=== PATIENT | female | born 1990 | race Caucasian/White ===

== ENCOUNTER 2020-04-17 03:31 | Outpatient (CLI) | payer OTHER, SELFPAY ==
[2020-04-17 16:22] LABS: Abs Immature Grans 0.03 10^3/uL (0.0-0.06); Absolute Basophil Count 0.02 10^3/uL (0.0-0.2); Absolute Eosinophil Count 0.08 10^3/uL (0.0-0.7); Absolute Lymphocyte Count 2.48 10^3/uL (1.2-3.4); Absolute Monocyte Count 0.62 10^3/uL (0.1-0.8); Absolute Neutrophil Count 5.14 10^3/uL (1.2-6.7); Basophils % 0.2; HCT 31.9 % (36.0-46.0); HGB 11.3 g/dL (11.2-15.7); Immature Grans % 0.4; Lymphocytes % 29.6; MCH 30.9 pg (27.0-33.0); MCHC 35.4 % (32.0-36.0); MCV 87.2 fL (80-95); MPV 11.7 fL (8.0-11.0); Monocytes % 7.4; Neutrophils % 61.4; Nucleated RBC 0 %; Platelet Count 221 10^3/uL (130-400); RBC 3.66 10^6/uL (3.93-5.22); RDW 11.9 % (11.7-14.6); RDW-SD 38.2 fL; WBC 8.37 10^3/uL (4.4-10.8)
[2020-04-17 16:30] LABS: *AMPHETAMINES SCREEN URINE Negative (Negative); *BARBITURATES SCREEN URINE Negative (Negative); *BENZODIAZEPINES SCREEN URINE Negative (Negative); Cannabinoids THC Negative (Negative); Cocaine Screen,Urine Negative (Negative); METHADONE URINE SCREEN Negative (Negative); OPIATES URINE SCREEN Negative (Negative); Tricyclic Antidepressants Negative (Negative)
[2020-04-17 17:33] LABS: TSH (W/Ref FT4) 1.72 uIU/mL (0.36-3.74)
[2020-04-20 23:55] LABS: Chlamydia amplified RNA Negative (Negative); N gonorrhoeae amplified RNA Negative (Negative); Source VAGINAL
[2020-04-21 10:08] LABS: Syphilis Total Ab w/Reflex Nonreactive (Nonreactive)
[2020-04-21 12:47] LABS: HIV-1/2 Ag & Ab Screen Negative (Negative)
[2020-04-23 11:47] LABS: Buprenorphine Negative; Norbuprenorphine Negative
[2020-04-28 12:47] LABS: Hepatitis B Surface Ag Negative (Negative); Hepatitis C Ab w Rflx HCV PCR Negative (Negative)
[2020-04-28 12:48] LABS: Rubella IgG Ab (UVM) Positive; Varicella IgG Antibody Positive
== END 2020-04-17 03:51 ==
PROVIDERS: PCP Physician Assistant; Visit Provider Advanced Practice Midwife
DX: Z34.91 Encounter for supervision of normal pregnancy, unspecified, first trimester (principal); Z11.4 Encounter for screening for human immunodeficiency virus [HIV]; Z11.59 Encounter for screening for other viral diseases; Z01.84 Encounter for antibody response examination
CPT/HCPCS: 36415; 80307; 86787; 86803; 86850; 86900; 86901; 87340; 87389; 87491; 87591; 84443; 85025; 86762; 86780; 87086

== ENCOUNTER 2020-04-22 04:34 | Outpatient (CLI) | payer OTHER, SELFPAY ==
[2020-04-22 07:58] LABS: Glucose,1 Hr (Glucola) 176 mg/dL (80-140)
== END 2020-04-22 04:54 ==
PROVIDERS: PCP Physician Assistant; Visit Provider Advanced Practice Midwife
DX: Z34.91 Encounter for supervision of normal pregnancy, unspecified, first trimester (principal)
CPT/HCPCS: 36415; 82950

== ENCOUNTER 2020-04-28 01:58 | Outpatient (CLI) | payer OTHER, SELFPAY ==
[2020-04-28 10:41] LABS: Glucose 1 Hour 213 mg/dL
[2020-04-28 12:23] LABS: Glucose 3 Hour 89 mg/dL
== END 2020-04-28 02:18 ==
PROVIDERS: PCP Physician Assistant; Visit Provider Advanced Practice Midwife
DX: R73.09 Other abnormal glucose (principal)
CPT/HCPCS: 36415; 82951

== ENCOUNTER 2020-04-30 01:45 | Outpatient (CLI) | payer OTHER, SELFPAY ==
--- NOTE | 2020-04-30 14:00 | NS.NUTBLAN_ITS ---
Steffanie referred for Medical Nutrition Therapy for Gestational Diabetes. She is 14 weeks with second child. Her 1 hour glucola 176ml/dl, her 3 hour GTT had 2 elevated readings. She brought in her glucometer and supplies and I instructed her how to take her blood sugars and log them 4 times daily. Diet recall indicating mostly balanced home made meals with good variety. Only family member with DM is grandmother. Expect Steffanie will be able to control her GDM with lifestyle changes. I provided her with meal plans and log sheets, encouraged her to use [employer] to log meals and to bring blood sugar logs and glucometer to next OB visit. Will continue to follow and support through out her .
--- NOTE | 2020-05-12 10:43 | W.DIABETESNO ---
Date of service: 05/12/20 Time of Service: 10:43 Diabetes Note NOTE: Spoke to Nathalie on phone. She is 16 weeks and dx with GDM. She reports all fasting blood sugars <95 mg/dl. She has had a couple of elevated post prandial blood sugars (>150 mg/dl) and was able to identify food that caused blood sugar spike and avoided it there after. Overall, her post prandial BS have been less than 140 mg/dl. Diet recall indicates well balanced meals. Encouraged staying active, eating 3 meals, 2 snacks daily. Will continue to follow and support. Time Spent in Nutritional Counseling and Treatment: 10 minutes
== END 2020-04-30 02:05 ==
PROVIDERS: PCP Physician Assistant; Visit Provider Dietitian, Registered
DX: O24.410 Gestational diabetes mellitus in pregnancy, diet controlled (principal); Z3A.14 14 weeks gestation of pregnancy; Z71.3 Dietary counseling and surveillance
CPT/HCPCS: 97802

== ENCOUNTER 2020-06-08 01:22 | Outpatient (CLI) | payer OTHER, SELFPAY ==
--- NOTE | 2020-06-08 08:00 | DI.US_ITS ---
EXAM: US OB 2-3 TRIMESTER W MOD CLINICAL HISTORY: routine pnc, , Z34.90. TECHNIQUE: Transabdominal obstetrical ultrasound was performed. COMPARISON: US OB US 2-3 TRIMESTER TRANSABD*P from 12/26/2016 FINDINGS: There is a single viable intrauterine gestation with cardiac activity identified-155 bpm. Amniotic fluid: There is a normal amount of amniotic fluid. Placental location: The placenta is anterior grade 1,with no evidence of placenta previa.The distant from the tip of the placenta to the internal cervical os is 7.5 centimetres on today's study. ANATOMY: A 3 vessel umbilical cord view was not obtained on today's study. A four-chamber cardiac view was obtained. Right and left ventricular outflow tracts were imaged. There are no obvious abnormalities of the spinal column evident. There is no obvious abnormal ity of the anterior abdominal wall. stomach and urinary bladder are identified and there is no evidence of hydronephrosis. Satisfactory images of the palate, nose, and lips were apparently not able to be obtained on today's study Dating parameters place this at approximately 19 weeks and 5 days gestational age. BPD measures 19 weeks and 1 day HC measures 20 weeks and 1 day AC measures 19 weeks and 2 days FL measures 20 weeks and 3 days Estimated weight is 317 gm-0 pounds, 11 ounces Fetus is at the 85th percentile on the Hadlock scale. IMPRESSION:: Single viable intrauterine gestation which is approximately 19 weeks and 5 days gestati onal age, implying an KHADIJAH of October 28, 2020. There are no obvious anomalies evident on today's study. However, please note that adequate lian ges of a three-vessel umbilical cord were not obtained as well as adequate images of the upper lip nose palate region. Apparently this patient is scheduled to be read scanned on 06/15/2020 The placenta is anterior with no evidence of placenta previa. There is a normal amount of amniotic fluid. DATA REPOSITORY:
== END 2020-06-08 01:42 ==
PROVIDERS: PCP Physician Assistant; Visit Provider Advanced Practice Midwife
DX: Z34.92 Encounter for supervision of normal pregnancy, unspecified, second trimester (principal); Z3A.19 19 weeks gestation of pregnancy
CPT/HCPCS: 76805

== ENCOUNTER 2020-06-08 12:53 | Outpatient (CLI) | payer OTHER, SELFPAY ==
--- NOTE | 2020-06-08 11:00 | NS.NUTBLAN_ITS ---
Nathalie returns for MNT for GDM, diet controlled. Sophy is 19 weeks and blood sugar log indicates fasting blood sugars < 95 mg/dl, and 3 elevated post prandial blood sugars (145-155 mg/dl) in last 3 weeks. Overall, GDM is well controlled with diet and life style changes. At this time, I recommend reducing blood sugar monitoring to 3 times per week, fasting and 2 post prandials. Blood sugar logs provided. Nathalie had no questions or concerns and reports feeling confident in knowing what foods are healthy for her and baby. Follow up is scheduled at next [facility] visit or prn.
== END 2020-06-08 13:13 ==
PROVIDERS: PCP Physician Assistant; Visit Provider Dietitian, Registered
DX: O24.410 Gestational diabetes mellitus in pregnancy, diet controlled (principal); Z3A.19 19 weeks gestation of pregnancy; Z71.3 Dietary counseling and surveillance
CPT/HCPCS: 97803

== ENCOUNTER 2020-06-15 01:00 | Outpatient (CLI) | payer BC, SELFPAY ==
--- NOTE | 2020-06-15 | DI.US_ITS ---
EXAM: US OB F/U FACIAL/LVOT/RVOT CLINICAL HISTORY: F/U TO PREVIOUS EXAM of 06/08/2020. TECHNIQUE: Transabdominal obstetrical ultrasound was performed. COMPARISON: US US OB 2-3 TRIMESTER W MOD from 06/08/2020 FINDINGS: There is a single viable intrauterine gestation with cardiac activity identified-153 bpm The fetus is presently in breech position . Amniotic fluid: There is a normal amount of amniotic fluid. Placental location: The placenta is anterior grade 0-1,with no evidence of placenta previa. Dating parameters were not performed on today's study which is a follow-up from a few days ago. On today's study a good 3 vessel cord image was obtained. nose and upper lip region were able to be seen on today's study and appears satisfactory. IMPRESSION:: Viable intrauterine gestation as above. DATA REPOSITORY:
== END 2020-06-15 01:20 ==
PROVIDERS: PCP Physician Assistant; Visit Provider Advanced Practice Midwife
DX: Z34.92 Encounter for supervision of normal pregnancy, unspecified, second trimester (principal)
CPT/HCPCS: 76815

== ENCOUNTER 2020-06-23 14:34 | Outpatient (CLI) | payer BC, SELFPAY ==
--- NOTE | 2020-06-23 12:30 | NS.NUTBLAN_ITS ---
Nathalie was referred back to Medical Nutrition Therapy for placement of continuous glucose monitor to generate data on glucose variability, time in range and daily glucose patterns. Desk Pens Assembler educated Steffanie on how to place CGM and how to program her reader. Per MD recommendations, she will continue to do fasting blood sugars daily and provide report at next MD visit. Follow up visit 07/07/20 for data analysis.
--- NOTE | 2020-07-09 14:05 | W.DIABETESNO ---
Date of service: 07/07/20 Time of Service: 16:00 Diabetes Note NOTE: Met with Nathalie at [facility]. She is 23 weeks with GDM. She did not bring in her blood sugar log, however, was able to download continuous glucose monitor that indicated that target range (63-140 mg/dl) met 87% of the time in last 14 days. Average glucose 88 mg/dl (54-160 mg/dl) with 22% glucose variability. Fasting blood sugars reported as < 95 mg/dl. Reviewed 9% of low blood sugar (54-69 mg/dl) often occurring early in AM. Encouraged HS snack. 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 Reviewed importance of QID finger sticks while using CGM. Placed new sensor today. Will follow up at next visit. Nathalie reports co pay of sensors expensive, requested referral to [facility] for less out of pocket expense, referral made. Will continue to follow. Time Spent in Nutritional Counseling and Treatment: 20
== END 2020-06-23 14:54 ==
PROVIDERS: PCP Physician Assistant; Visit Provider Dietitian, Registered
DX: O24.410 Gestational diabetes mellitus in pregnancy, diet controlled (principal); Z71.3 Dietary counseling and surveillance
CPT/HCPCS: 97803

== ENCOUNTER 2020-08-04 02:30 | Outpatient (CLI) | payer BC, SELFPAY ==
[2020-08-04 14:09] LABS: HCT 34.8 % (36.0-46.0); HGB 11.7 g/dL (11.2-15.7); MCH 30.6 pg (27.0-33.0); MCHC 33.6 % (32.0-36.0); MCV 91.1 fL (80-95); MPV 11.9 fL (8.0-11.0); Platelet Count 226 10^3/uL (130-400); RBC 3.82 10^6/uL (3.93-5.22); RDW 12.8 % (11.7-14.6); RDW-SD 41.5 fL; WBC 8.61 10^3/uL (4.4-10.8)
[2020-08-04 14:36] LABS: Hemoglobin A1C 5.1 % (<5.7)
--- NOTE | 2020-08-06 13:21 | DIABASSESS_ITS ---
Date of service: 08/04/20 Time of Service: 13:21 Diabetes Note NOTE: Met with Nathalie at [facility] today. She is 27 weeks and has been using a CGM (abiodun 2) for last 4 weeks and checking fasting sugars and 1 post prandial dailly. CGM report incomplete, stopped scanning device about 2 weeks ago. Plans on only using finger sticks going forward. Brought in blood sugar log, most BS wnl (<95 fasting, <140 PP). GDM well controlled with diet and ifestyle. Encouraged continued blood sugar monitoring per recommendaikylies. Will continue to be available as needed. Time Spent in Nutritional Counseling and Treatment: 10
--- NOTE | 2020-08-17 14:46 | DIABASSESS_ITS ---
Date of service: 08/17/20 Time of Service: 14:46 Diabetes Note NOTE: Nathalie is 29 weeks with GDM. Met with Nathalie in [facility]. She has not brought her blood sugar logs with her, has not brought her glucometer with her either. She reports checking her fasting sugars in AM and they are < 95 mg/dl, she reports checking one post prandial level daily with results < 140 mg/dl. She is no longer using the CGM. Nathalie did not want to go over her recent food log and is hesitant in taking her blood sugars as recommended. Provided encouragement to bring in her blood sugar log at next visit so we can review/download into medical chart. GDM appears to be well controlled with diet and life style changes, recommend A1C at next blood draw. Time Spent in Nutritional Counseling and Treatment: 5 min
== END 2020-08-04 02:31 | disposition home or self-care (01) ==
LOC: LBO 02:30
PROVIDERS: Advanced Practice Midwife; PCP Physician Assistant; Visit Provider Advanced Practice Midwife
DX: O24.410 Gestational diabetes mellitus in pregnancy, diet controlled (principal); Z3A.28 28 weeks gestation of pregnancy
CPT/HCPCS: 36415; 85027; 83036

== ENCOUNTER 2020-09-08 01:55 | Outpatient (CLI) | payer BC, SELFPAY ==
--- NOTE | 2020-09-08 07:45 | DI.US_ITS ---
EXAM: US OB DENISE WEIGHT CLINICAL HISTORY: GDM,SURVEILLANCE,o24.419. COMPARISON: US US OB F/U FACIAL/LVOT/RVOT from 06/15/2020 US US OB F/U FACIAL/LVOT/RVOT from 06/15/2020 TECHNIQUE: Transabdominal obstetrical ultrasound performed. FINDINGS: Sonographic images demonstrate a single intrauterine gestation in cephalic position. Placenta: Anterior, grade 1 Predicted gestational age: 33 weeks 2 days Estimated date of delivery 01 Nov 2020: heart rate motion is Dopplered at: 163 BPM. BPD: 81mm = 32+3 weeks HC: 300mm = 33+2 weeks AC: 274mm = 31+3 weeks FL: 63mm = 32+4 weeks EFW: 1891 Grams = 32 % Sonographically assessed composite gestational age: 32 weeks 3 days Estimated date of delivery based on this ultrasound is: 31 Oct 2020 Amniotic fluid index: 18.0 cm. Amount of fluid is within normal limits. IMPRESSION: size and weight are within the expected range . DATA REPOSITORY:
== END 2020-09-08 02:15 ==
PROVIDERS: PCP Physician Assistant; Visit Provider Advanced Practice Midwife
DX: O24.410 Gestational diabetes mellitus in pregnancy, diet controlled (principal); Z3A.33 33 weeks gestation of pregnancy
CPT/HCPCS: 76816

== ENCOUNTER 2020-09-21 20:09 | Outpatient (CLI) | payer BC, SELFPAY ==
--- NOTE | 2020-09-21 21:40 | W.OBNST ---
Date of service: 09/21/20 Time of Service: 21:41 NST Evaluation Reason for NST Reason for NST Other: change in location of movement, possible decrease in movement. Note NST Note Note: Nathalie Lima presented for NST due to call to weapons designer operations intelligence superintendent with concern related to change in movement. She reports she fell onto her back from a low hanging swing seat at approximately 3 pm on 09/20/20 and did not think to call as she had no bleeding, pain or LOF. She was reading and thought that she should report she feels baby's movement lower and not in usual place. Is awre of movement but they are different. NST is reactive and reassuring with normal baseline and accelerations with movement that patient is aware of and noted on tracing. No contractions. Discharged to home from NST feeling reassured. Will return as scheduled or call PRN.SID NST Reviewed and Verified by: Margarita Serrato
--- NOTE | 2020-09-21 21:45 | W.PM.DS.N ---
Date of service: 09/21/20 Time of Service: 21:45 DS: Diagnosis Discharge Diagnosis (1) : Status: Acute (2) Decreased movement affecting management of in third trimester: Status: Acute Discharge Plan Disposition Patient Disposition: HOME Condition: Good Discharge Details Reason For Visit: NST Admit Date/Time: 09/21/20 20:27 Admit Provider: Margarita Serrato Attending Provider: Margarita Serrato Primary Care Provider: Antonio Walter Hospital Course Hospital Course: Had reactive NST and is reassured by movement while on monitor.KH Home Meds and New Rx's Prescriptions: No Action (DME) FreeStyle Nata 14 Day [place] Misc See Rx Instructions .ROUTE .MEDSUPPLY Qty: 1 RF: 0 omeprazole magnesium [Prilosec OTC] 20 mg tablet,delayed release (DR/EC) 20 mg PO DAILY Qty: 30 RF: 4 with DHA-Folic Acid 400-32.5 mcg-mg tablet,chewable 1 tab PO DAILY RF: 0 (DME) FreeStyle Lite Strips Strip See Rx Instructions .ROUTE .MEDSUPPLY Qty: 100 RF: 3 (DME) blood-glucose meter [FreeStyle Lite Meter] Kit See Rx Instructions .ROUTE .MEDSUPPLY Qty: 1 RF: 0 (DME) lancets [FreeStyle Lancets] 28 gauge misc See Rx Instructions .ROUTE .MEDSUPPLY Qty: 100 RF: 3 (DME) FreeStyle Nata 2 Sensor Kit See Rx Instructions .ROUTE .MEDSUPPLY Qty: 1 RF: 6 aspirin 81 mg tablet,delayed release (DR/EC) 122 mg PO DAILY Qty: 90 RF: 3 Discharge Instructions Instructions: Movement (GEN), Kick Counts in (GEN) Activity:: Activity as Tolerated Equipment/Supplies:: No Equipment Needed Diet:: As Tolerated Discharge Orders Discharge Orders: Discharge Order (Routine); Ordered 09/21/20 Ordered By: Margarita Serrato DS: Summary Time Spent with Patient providing and/or coordinating discharge services: Less than 30 minutes Status at Discharge Functional status at discharge: independent ambulation Overall status at discharge: patient is back to baseline Mental Status: mental status grossly normal Speech and Movement: speech and movement normal Mood: congruent mood Affect: normal affect Exam Psych Mental Status: mental status grossly normal Speech and Movement: speech and movement normal Mood: congruent mood Affect: normal affect [facility] Medical History (Updated 09/21/20 @ 21:46 by Margarita Serrato CNM) 32 weeks gestation of Elevated glucose level Heart murmur flow murmur Pediatric Records requested: 10/03/16 History of varicella age 2 years Surgical History (Updated 04/17/20 @ 15:04 by Lester Fajardo CNM) Previous section Family History Grandmother Diabetes Mother Hearing loss Injury related ( damage to ear drum) Grandmother Hearing loss Congenital. Wears hearing aids. Maternal Aunt Pancreatic cancer Social History Smoking/Tobacco Use Status: Never Smoking risk assessment performed?: Yes History History 2 Para 1 Hx # Term Pregnancies 1 Multiple births 0 Hx # Pregnancies 0 Ectopic pregnancies 0 AB induced 0 Hx Number of Living Children 1 AB spontaneous 0 Past Pregnancies Del. Date GA/Weeks # Outcome Route Wgt Sex Labor Lgth Anesthesia Location Prov Complic 05/25/17 41 No Successful 6 lb 15.289 oz Female Lester and Dr. Gilmore Delivery Date: 05/25/17 spont labor, meconium, epidural at 6 cm, pushed without descent, emergency C/S for distress, general anesthesia Bisi Joseph
[2020-09-21 21:57] VITALS: BP 110/71; PULSE 98
== END 2020-09-21 20:28 | disposition home or self-care (01) ==
LOC: LBN 20:22 → OBS 21:47 → BCD 21:54
PROVIDERS: PCP Physician Assistant; Visit Provider Advanced Practice Midwife
DX: O36.8130 Decreased fetal movements, third trimester, not applicable or unspecified (principal); Z3A.33 33 weeks gestation of pregnancy
CPT/HCPCS: 59025; NC

== ENCOUNTER 2020-09-24 02:43 | Outpatient (CLI) | payer BC, SELFPAY ==
[2020-09-24 13:05] VITALS: BP 115/80; PULSE 93; RESP 16; TEMP 37.4; O2SAT 98
[2020-09-24] MEDS: Normal Saline Flush 10 ML SYR IVP (13:25)
[2020-09-24] MEDS: Normal Saline 500 ML 30 ML IV (13:25)
[2020-09-24 13:32] VITALS: BP 116/80; PULSE 88; RESP 14; TEMP 37.7; O2SAT 96
[2020-09-24 14:03] VITALS: BP 111/76; PULSE 90; RESP 16; TEMP 37.1; O2SAT 98
[2020-09-24 14:33] VITALS: BP 109/73; PULSE 91; RESP 16; TEMP 37.4; O2SAT 97
[2020-09-24 15:00] VITALS: BP 114/81; PULSE 92; RESP 16; TEMP 37.4; O2SAT 97
== END 2020-09-24 02:44 | disposition home or self-care (01) ==
PROVIDERS: PCP Physician Assistant; Visit Provider Family Medicine
DX: U07.1 COVID-19 (principal)
CPT/HCPCS: 96365

== ENCOUNTER 2020-10-07 15:53 | Outpatient (CLI) | payer BC, MEDICAID, SELFPAY ==
[2020-10-07 16:09] VITALS: BP 114/76; PULSE 83; TEMP 208.8; TEMP 98.2
[2020-10-07 16:12] VITALS: BP 114/76; PULSE 75
[2020-10-07 16:47] LABS: *AMPHETAMINES SCREEN URINE Negative (Negative); *BARBITURATES SCREEN URINE Negative (Negative); *BENZODIAZEPINES SCREEN URINE Negative (Negative); Cannabinoids THC Negative (Negative); Cocaine Screen,Urine Negative (Negative); METHADONE URINE SCREEN Negative (Negative); OPIATES URINE SCREEN Negative (Negative)
[2020-10-07 16:49] LABS: Tricyclic Antidepressants Negative (Negative)
--- NOTE | 2020-10-07 17:06 | W.OBNST ---
Date of service: 10/07/20 Time of Service: 16:30 NST Evaluation Reason for NST Reasons for Nonstress Test: GDM-DIET CONTROLLED Gestational Age Gestational Age in Weeks and Days: 36 Weeks and 3Days Test and Monitor Explained Test/Monitor Explained: Test Explained, Monitor Explained and Patient Verbalized Understanding Vital Signs Blood Pressure: 114/76 Pulse: 83 Temperature: 208.8 F NST Information Date on Monitor: 10/07/20 Time on Monitor: 16:07 Date off Monitor: 10/07/20 Time off Monitor: 16:30 Total Time on Monitor: 23 NST Interventions: None Contraction Frequency: no regular contractions NST Evaluation Patient States Movement: Present FHR Baseline: 135 Variability: Moderate 6-25 bpm Accelerations: 15x15 Decelerations: None NST Results: Reactive Note NST Note Note: Nathalie presented for NST due to pre-gestational diabetes well controlled by diet only at 36w3d with no complaints. NST is reactive and reassuring. Has US 5/4 and will repeat NST next week as well. NST Reviewed and Verified by: Margarita Serrato
[2020-10-07 17:08] VITALS: BP 114/76; PULSE 83; TEMP 208.8; TEMP 98.2
[2020-10-08 09:20] VITALS: BP 136/78; PULSE 97
[2020-10-14 09:58] LABS: Buprenorphine Negative ng/mL (Cutoff: 5.0)
== END 2020-10-07 16:45 | disposition home or self-care (01) ==
LOC: BCD 15:56 → OBS 16:04
PROVIDERS: Advanced Practice Midwife; PCP Physician Assistant; Visit Provider Advanced Practice Midwife
DX: O24.410 Gestational diabetes mellitus in pregnancy, diet controlled (principal); Z3A.36 36 weeks gestation of pregnancy
CPT/HCPCS: 59025; 80307; 87081

== ENCOUNTER 2020-10-13 00:57 | Outpatient (CLI) | payer MEDICAID, SELFPAY ==
--- NOTE | 2020-10-13 08:15 | DI.US_ITS ---
Exam(s) US OB DENISE WEIGHT EXAM: US OB DENISE WEIGHT CLINICAL HISTORY: growth in pt with diet controlled GDM,Z3A.36,o24.419. TECHNIQUE: Transabdominal obstetrical ultrasound performed. COMPARISON: US US OB DENISE WEIGHT from 09/08/2020 FINDINGS: Transabdominal obstetrical ultrasound performed. FINDINGS: Number of fetuses: One. position: Cephalic. Placental location: Anterior. Placental is grade 2. No evidence of previa. BIOMETRIC DATA: BPD: 91 mm = 37 weeks HC: 327 mm = 37 weeks 1 day AC: 332 mm = 37 weeks 1 day FL: 75 mm = 38 weeks 1 day EFW: 3180 grms 59% Composite Age: 37 weeks 3 days EDC: 10/31/2020 Heart Rate: 162BPM Amniotic fluid index: 5.8 cm. Visually, amount of fluid is at the lower limits of normal. IMPRESSION: 1. Single live intrauterine gestation as above. 2. Estimated weight is 3180gms. 3. Amniotic fluid index is 5.8 cm. Visually within lower limits of normal. DATA REPOSITORY:
== END 2020-10-13 01:17 ==
PROVIDERS: PCP Physician Assistant; Visit Provider Obstetrics & Gynecology Gynecology
DX: O24.410 Gestational diabetes mellitus in pregnancy, diet controlled (principal); Z3A.37 37 weeks gestation of pregnancy
CPT/HCPCS: 76816

== ENCOUNTER 2020-10-16 09:05 | Outpatient (CLI) | payer MEDICAID, SELFPAY ==
[2020-10-16 16:31] VITALS: BP 119/76; PULSE 80; TEMP 36.7
--- NOTE | 2020-10-16 17:59 | W.OBNST ---
Date of service: 10/16/20 Time of Service: 17:59 NST Evaluation Reason for NST Reasons for Nonstress Test: GDM-DIET CONTROLLED Gestational Age Gestational Age in Weeks and Days: 37 Weeks and 5Days Test and Monitor Explained Test/Monitor Explained: Test Explained, Monitor Explained and Patient Verbalized Understanding Vital Signs Blood Pressure: 119/76 Pulse: 80 Temperature: 98.1 F Urine Results Urine Protein: Negative Urine Ketones: Positive Urine Glucose: Negative Urine Blood: Negative NST Information Date on Monitor: 10/16/20 Time on Monitor: 16:36 Date off Monitor: 10/16/20 Time off Monitor: 16:57 Total Time on Monitor: 21 NST Interventions: None NST Evaluation Patient States Movement: Present FHR Baseline: 145 Variability: Moderate 6-25 bpm Accelerations: 15x15 Decelerations: None NST Results: Reactive Note NST Note Note: Pos. Ketones per RN. RADHA Khoury recommended fluids and increased snacks. Follow up with MD GUERIN Reviewed and Verified by: Margarita Howard
[2020-10-16 18:00] VITALS: BP 119/76; PULSE 80; TEMP 36.7
== END 2020-10-16 17:00 | disposition home or self-care (01) ==
LOC: BCD 09:11 → OBS 16:30
PROVIDERS: PCP Physician Assistant; Visit Provider Advanced Practice Midwife
DX: O24.410 Gestational diabetes mellitus in pregnancy, diet controlled (principal); Z3A.37 37 weeks gestation of pregnancy
CPT/HCPCS: 59025

== ENCOUNTER 2020-10-18 00:38 | Inpatient (IN) | payer MEDICAID, SELFPAY ==
[2020-10-18] VITALS (31 sets, daily range): BP systolic 102–125; BP diastolic 59–84; PULSE 71–109; RESP 15–20; TEMP 36.6–37.3; O2SAT 97–100; BMI 32.7
--- NOTE | 2020-10-18 01:30 | NUR.NOTE ---
Nursing Note: vaginal exam performed by Sanjuanita Joseph CNM - 3cm, 80%, -3.
--- NOTE | 2020-10-18 01:39 | HPE_ITS ---
Date of service: 10/18/20 Time of Service: 01:39 Assessment and Plan Assessment and plan (1) Gestational diabetes mellitus (GDM) affecting second : Status: Acute (2) Patient desires vaginal after section (): Status: Acute Assessment and plan: A: r/o labor pt desires TOLAC if in spontaneous labor pre-GDM diet controlled Fetus AGA per recent ultrasound EFW P: Urine dip is neg random FS glucose 105 encourage oral hydration Recheck cvx in 3-4 hrs or if contractions increase Dr. Shrestha consulting and inhouse (3) 38 weeks gestation of : Status: Acute OB-HPI Labor/Delivery History of Present Illness Reason for Visit: RULE OUT LABOR Chief Complaint: Uterine Contractions (was woken up by contractions at 2315, they have gotten more regular at every 5 minutes and stronger. Desires TOLAC). KHADIJAH Calculator Estimated Delivery Date Method Current WG Current Estimate 11/01/20 Ultrasound #1 38w 0d Other Estimates 10/27/20 LMP (Certain) 38w 5d History of Present Expected Delivery Route/Plan Considering TOLAC/ - CNM FOB/ - Matt Lima 09/23 - considering TOLAC, will have repeat C/S if there is indication for IOL DM diagnosed at 13 weeks (pre-gestational) GBS negative Specific Issues/Plan 1. Declines optional labs declination signed. 2. Possible : 2a. Confirmed low transverse uterine scar 2b. Plan 30 wk appt with MD for informed choice visit, done 08/17/20 2c. At 31 wk appt pt states she is planning for scheduled repeat C/S 2d. Undecided re: TOLAC or 3. Risk assessment: Increased for shoulder dystocia 2`elevated bmi enc. wt gain < 40 lbs. 4. BMI 33, early glucola 175; 3 hr GTT at 13 weeks: 92/213/164/89 4a. 06/08/20: Excellent glucose control thus now tid, 3days/wk.al 5. Pre-gestational DM: Pt to begin Cont Glucose Monitoring (CGM), meets w/Olga 06/23/20 5a. daily fingerstick fasting for a wk and then 3x/wk to corroborate CGM 5b. CNM/ collab management; MD appt's to manage blood sugars and plan surveillance 5c. plan growth US at 32 and 36 week and NST's at 36 week per MD 6. Review @ 21 wks of prev course reveals hx HTN Rx'ed labetalol x1 month 6a. recommended to pt to begin low dose ASA 120 mg PO qd 7. Covid infection. Symptoms 09/20. pos. test 09/21 - elects monoclonal antibody treatment, scheduled 09/23 7A. Daughter and parents are covid pos. also, neg., being retested- was positive as well as 3 other family members Review of Systems All systems reviewed & are unremarkable except as noted in HPI and below Constitutional Constitutional: Reports system reviewed and no additional complaints, except as documented Eyes Eyes: Reports system reviewed and no additional complaints, except as documented ENT Ears, Nose, Mouth, and Throat: Reports system reviewed and no additional complaints, except as documented Cardiovascular Cardiovascular: Reports system reviewed and no additional complaints, except as documented Respiratory Respiratory: Reports system reviewed and no additional complaints, except as documented Gastrointestinal Gastrointestinal: Reports system reviewed and no additional complaints, except as documented Genitourinary Genitourinary: Reports system reviewed and no additional complaints, except as documented and Reports as per HPI Musculoskeletal Musculoskeletal: Reports system reviewed and no additional complaints, except as documented Integumentary/Breasts Skin/Breast: Reports system reviewed and no additional complaints, except as documented Neurologic Neurologic: Reports system reviewed and no additional complaints, except as documented Psychiatric Psychiatric: Reports system reviewed and no additional complaints, except as documented [facility] Medical History (Updated 10/18/20 @ 03:00 by Bisi Joseph) 32 weeks gestation of Elevated glucose level Heart murmur flow murmur Pediatric Records requested: 10/03/16 History of varicella age 2 years Surgical History (Updated 04/17/20 @ 15:04 by Lester Fajardo CNM) Previous section Family History Grandmother Diabetes Mother Hearing loss Injury related ( damage to ear drum) Grandmother Hearing loss Congenital. Wears hearing aids. Maternal Aunt Pancreatic cancer Social History Smoking/Tobacco Use Status: Never Smoking risk assessment performed?: Yes History History 2 Para 1 Hx # Term Pregnancies 1 Multiple births 0 Hx # Pregnancies 0 Ectopic pregnancies 0 AB induced 0 Hx Number of Living Children 1 AB spontaneous 0 Past Pregnancies Del. Date GA/Weeks # Outcome Route Wgt Sex Labor Lgth Anesthes ia Location Prov Complic 05/25/17 41 No Successful 6 lb 15.289 oz Female [facility] and Dr. Gilmore Delivery Date: 05/25/17 spont labor, meconium, epidural at 6 cm, pushed without descent, emergency C/S for distress, general anesthesia Bisi Joseph Allergies and Home Medications Allergies Allergy/AdvReac Type Severity Reaction Status Date / Time No Known Allergies Allergy Verified 10/14/20 15:19 Home Medications Medication Instructions Recorded Confirmed Type 103-folic acid 400 1 tab PO DAILY tab 04/17/20 09/29/20 History mcg-omeg3 32.5 mg-dha-fish oil chew tablet blood sugar diagnostic #100 ea 04/28/20 09/29/20 Rx blood-glucose meter #1 ea 04/28/20 09/29/20 Rx lancets 28 gauge #100 ea 04/28/20 09/29/20 Rx aspirin 81 mg tablet,delayed 122 mg PO DAILY #90 tab 06/23/20 09/29/20 Rx release flash glucose sensor #1 ea 06/23/20 09/29/20 Rx flash glucose scanning reader #1 ea 07/07/20 09/29/20 Rx omeprazole magnesium 20 mg 20 mg PO DAILY #30 tab 09/02/20 09/29/20 Rx tablet,delayed release Exam Physical Exam Vital Signs Reviewed: Yes Constitutional Constitutional: no acute distress Detailed Labor and Delivery Exam Dilation: 3 Effacement (%): 80 station: -3 Cervix position: posterior Consistency: soft Amniotic Membrane Status: Intact Monitor Mode: External Contraction Frequency(min): irregular q 3-5 Contraction Intensity: Mild Fetus A Heart Rate Baseline: 130 Monitor Accelerations: 15 X 15 Monitor Decelerations: None Variability: Moderate (6-25 BPM) Presentation: Cephalic Categories: Category I Est. Weight: 193 lb 12 oz Est. Weight: 3100 gms HEENT Exam HEENT Exam: Normal Neck Exam Neck Exam: Normal Chest/Brest/Axilla Exam Chest Exam: Normal Breast Exam Breast Exam: Normal Respiratory Exam Respiratory Exam: Normal Cardiovascular Exam Cardiovascular Exam: Normal Abdominal Exam Abdominal Exam: Normal (Gravid, S=D) Rectal Exam Rectal Exam: Normal Exam Exam: Normal Extremities Exam Extremities Exam: Normal Back/Spine/Pelvis Exam Back Exam: Normal Pelvis Adequate: Yes Skin Exam Skin Exam: Normal Neurological Exam Neurological Exam: Normal Psychiatric Exam Psychiatric Exam: Normal Results Results Group Beta Strep: Negative Blood Type: O+ Rubella Status: Immune Varicella Immunity: Immune Risk Assessment Risk for Shoulder Dystocia Historical/Initial OB: POSITIVE FOR: Pre- BMI>30; NEGATIVE FOR: Pelvic Abnormality, Previous Shoulder Dystocia or Previous Macrosomia Increased Risk?: No Counselin04/17/20 iob slight r/t to bmi al Delivery Plan @ 36wks: scheduled repeat C/S at 40 wks if no spont labor,TOLAC if spont labor Risk for Pre-Eclampsia Daily Dose ASA Indicated: No Date Initiated/Initials: 04/17/20 al Yes, if one or more: NEGATIVE FOR: Hx Pre-E/Gest HTN, Chronic HTN, Multiple Gestation, Pre-gestational DM, Renal Disease, Systemic Lupus or APA Syndrome Yes, if 2 or more: POSITIVE FOR: BMI>30; NEGATIVE FOR: Nulliparity, Age>= 35 yrs, >10yr btwn pregnancies, ethinicty, Mother/Sister w/ Pre-E or Previous IUGR Risk for Post- Hemorrhage Initial: NEGATIVE FOR: Multiple Gestation, Previous PPH, Known Clotting Deficiency, Grand Multiparity or Anticoagulation At Risk?: No Risks Reviewed Risks Reviewed Upon Admission: Yes
--- NOTE | 2020-10-18 01:49 | NUR.NOTE ---
Nursing Note: void in toilet - light yellow, clear.
--- NOTE | 2020-10-18 05:21 | PGE_ITS ---
Date of service: 10/18/20 Time of Service: 05: Informed Consent Informed Consent: Risk,Benefits,Alternatives Discussed and Vaginal after Pelvic Exam Dilation: 4 Effacement (%): 80 station: -3 Cervix Position: posterior Consistency: soft Vaginal Exam Presentation: Cephalic Contractions Monitor Mode: External Contraction Frequency(min): 3-4 Intensity: Mild/Moderate Fetus A Monitor: External (US) Heart Rate Baseline: 135 Variability: Moderate (6-25 BPM) Categories: Category I Accelerations: 15 X 15 Decelerations: None Amniotic Membrane Status: Intact Assessment and Plan Assessment and plan (1) Patient desires vaginal after section (): Status: Acute Assessment and plan: A: Early active labor in multipara TOLAC at pt's request after informed consent Requesting regional anesthesia Category 1 tracing P: Pt admitted to , draw CBC, T&S, collect COVID swab 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 Shrestha inhouse Hand off to JABIER Howard @ 0800 (2) 38 weeks gestation of : Status: Acute (3) Gestational diabetes mellitus (GDM) affecting second : Status: Acute Objective Temp Pulse Resp BP Pulse Ox 97.8 F 85 18 122/84 97 10/18/20 04:38 10/18/20 04:38 10/18/20 04:38 10/18/20 04:38 10/18/20 04:38 Vital Signs Reviewed: Yes Objective Narrative Objective Narrative: Cervix rechecked after 3 hours, cervical change palpable from 3-4 cm to now 4-5 cm Pt is visibly more uncomfortable, requesting epidural soon Afebrile, normotensive Category 1 tracing Pt's mother is bedside as labor support Subjective Interval history since last seen: Contractions are increasingly strong, desires epidural and to continue with TOLAC under regional anesthesia
[2020-10-18 05:32] LABS: HCT 34.2 % (36.0-46.0); HGB 11.6 g/dL (11.2-15.7); MCH 30.9 pg (27.0-33.0); MCHC 33.9 % (32.0-36.0); MCV 91.2 fL (80-95); MPV 12.5 fL (8.0-11.0); Platelet Count 169 10^3/uL (130-400); RBC 3.75 10^6/uL (3.93-5.22); RDW 13.8 % (11.7-14.6); WBC 9.04 10^3/uL (4.4-10.8)
[2020-10-18 05:34] LABS: Source Nasal/Nares
[2020-10-18] MEDS: Lactated Ringers 1,000 ML 125 ML IV (05:41)
--- NOTE | 2020-10-18 05:41 | ANES.PREOP_ITS ---
General Info Date of Service Date Performed: 10/18/20 Height: 5 ft 1 in Weight: 78.5 kg Body Mass Index (BMI): 32.7 Meds Allergies and Home Medications Allergies Allergy/AdvReac Type Severity Reaction Status Date / Time No Known Allergies Allergy Verified 10/14/20 15:19 Home Medication Medication Instructions Recorded 103-folic acid 400 1 tab PO DAILY tab 04/17/20 mcg-omeg3 32.5 mg-dha-fish oil chew tablet blood sugar diagnostic #100 ea 04/28/20 blood-glucose meter #1 ea 04/28/20 lancets 28 gauge #100 ea 04/28/20 aspirin 81 mg tablet,delayed 122 mg PO DAILY #90 tab 06/23/20 release flash glucose sensor #1 ea 06/23/20 flash glucose scanning reader #1 ea 07/07/20 omeprazole magnesium 20 mg 20 mg PO DAILY #30 tab 09/02/20 tablet,delayed release Current Visit Medications: Current Medications Generic Name Dose Route Start Last Admin Trade Name Freq PRN Reason Stop Dose Admin Sodium Chloride 500 mls @ 0 mls/hr 10/18/20 05:08 Saline 500ml Bag IV PRN PRN As Directed Ringer's Solution 1,000 mls @ 125 mls/hr 10/18/20 05:15 10/18/20 05:41 IV 125 mls/hr INFUSION CARRI Administration IV Miscellaneous Supplies 1 each 10/18/20 05:15 Iv Access IV DIRECTED CARRI Omeprazole 20 mg 10/18/20 07:30 Omeprazole 20 Mg Capcr PO DAILY@0730 CARRI Sodium Chloride 0 ml 10/18/20 05:08 Normal Saline Flush 10 Ml Syr IVP PRN PRN PFSH Active Problems Active Problems: Problem Status Onset Code 38 weeks gestation of Z3A.38 BMI 33.0-33.9,adult Z68.33 Decreased movement affecting management of in third trimester O36.8130 36 weeks gestation of Z3A.36 History of hypertension Z86.79, Z87.59 Gestational diabetes mellitus (GDM) affecting second O24.419 Z34.90 Patient desires vaginal after section () O34.219 Medical History Medical History (Updated 10/18/20 @ 06:15 by Opal Shrestha DO) 32 weeks gestation of Elevated glucose level Heart murmur flow murmur Pediatric Records requested: 10/03/16 History of varicella age 2 years Personal history of COVID-19 Surgical History Surgical History (Updated 04/17/20 @ 15:04 by Lester Fajardo CNM) Previous section Tobacco Smoking/Tobacco Use Status: Never Prental History History 2 Para 1 Hx # Term Pregnancies 1 Multiple births 0 Hx # Pregnancies 0 Ectopic pregnancies 0 AB induced 0 Hx Number of Living Children 1 AB spontaneous 0 Past Pregnancies Del. Date GA/Weeks # Outcome Route Wgt Sex Labor Lgth Anesthes ia Location Prov Complic 05/25/17 41 No Successful 3155 g Female [facility] and Dr. Gilmore Delivery Date: 05/25/17 spont labor, meconium, epidural at 6 cm, pushed without descent, emergency C/S for distress, general anesthesia Bisi Joseph Vital Signs and Lab Results Vital Signs Most Recent Vital Signs in EMR: Most Recent Vital Signs Temp Pulse Resp BP Pulse Ox 36.6 C 85 18 122/84 97 10/18/20 04:38 10/18/20 04:38 10/18/20 04:38 10/18/20 04:38 10/18/20 04:38 Point of Care Results Point of Care Results: Finger Stick Blood Glucose 105 10/18/20 01:43 Lab Results Result Diagrams: 10/18/20 05:20 Blood Type / Crossmatch: Patient ABO/Rh O Positive 10/18/20 05:20 10/18/20 Antibody Screen Negative 10/18/20 05:20 10/18/20 Complete Blood Count: White Blood Count 9.04 10^3/uL (4.4-10.8) 10/18/20 05:20 10/18/20 Red Blood Count 3.75 10^6/uL (3.93-5.22) L 10/18/20 05:20 10/18/20 Hemoglobin 11.6 g/dL (11.2-15.7) 10/18/20 05:20 10/18/20 Hematocrit 34.2 % (36.0-46.0) L 10/18/20 05:20 10/18/20 Platelet Count 169 10^3/uL (130-400) 10/18/20 05:20 10/18/20 Complete Metabolic Panel: Sodium Level 139 mmol/L (136-145) 05/26/17 06:30 05/26/17 Potassium Level 3.8 mmol/L (3.5-5.1) 05/26/17 06:30 05/26/17 Chloride Level 108 mmol/L (98-107) H 05/26/17 06:30 05/26/17 Carbon Dioxide Level 24.9 mmol/L (21.0-32.0) 05/26/17 06:30 05/26/17 Blood Urea Nitrogen 8 mg/dL (7-18) 05/27/17 07:05 05/27/17 Creatinine 0.61 mg/dL (0.55-1.02) 05/27/17 07:05 05/27/17 Calcium Level 8.0 mg/dL (8.5-10.1) L 05/26/17 06:30 05/26/17 Albumin 1.8 g/dL (3.4-5.0) L 05/27/17 07:05 05/27/17 Glucose Level 83 mg/dL (70-100) 05/26/17 06:30 05/26/17 Hemoglobin A1c 5.1 % (<5.7) 08/04/20 13:55 08/04/20 Liver Function Panel: Alanine Aminotransferase (ALT/SGPT) 14 U/L (14-59) 05/27/17 07:05 05/27/17 Aspartate Amino Transf (AST/SGOT) 30 U/L (15-37) 05/27/17 07:05 05/27/17 Coagulation Panel: No Data to Display Cardiac Panel: No Data to Display Arterial Blood Gas: No Data to Display Venous Blood Gas: No Data to Display Pancreas Panel: No Data to Display Thyroid Panel: Thyroid Stimulating Hormone (TSH) 1.72 uIU/mL (0.36-3.74) 04/17/20 16:04 04/17/20 Infectious Disease: Coronavirus (COVID-19)(PCR) Positive (Negative) A* 10/18/20 05:15 10/18/20 Coronavirus 2019 Source Nasal/nares 10/18/20 05:15 10/18/20 HIV (1&2) Ag and Ab, 4th Generation Negative (Negative) 04/17/20 16:04 04/17/20 Hepatitis B Surface Antigen Negative (Negative) 04/17/20 16:04 04/17/20 Hepatitis C Antibody Negative (Negative) 04/17/20 16:04 04/17/20 Syphilis Serology Negative (Negative) 10/03/16 15:14 10/03/16 Neisseria gonorrhoeae DNA Probe See comments 10/03/16 14:45 10/03/16 Blood Cultures: No Data to Display Toxicology Panel: Urine Amphetamines Screen Negative (Negative) 10/07/20 16:00 10/07/20 Urine Benzodiazepines Screen Negative (Negative) 10/07/20 16:00 10/07/20 Urine Barbiturates Screen Negative (Negative) 10/07/20 16:00 10/07/20 Urine Cocaine Screen Negative (Negative) 10/07/20 16:00 10/07/20 Urine Methadone Screen Negative (Negative) 10/07/20 16:00 10/07/20 Urine Opiates Screen Negative (Negative) 10/07/20 16:00 10/07/20 Ur Tricyclic Antidepressants Screen Negative (Negative) 10/07/20 16:00 10/07/20 Ur Tetrahydrocannabinol (THC) Scrn Negative (Negative) 10/07/20 16:00 10/07/20 Panel: Urine HCG, Qualitative Positive 02/19/20 15:32 02/19/20 Anesthesia Assessment and Plan Anesthesia History Personal History: No History of Anesthesia Complications Family History: No Family History of Anesthesia Complications Exercise Tolerance Exercise Tolerance: Metabolic Equivalents>4 Cardiac & Pulmonary Exam Cardiac Exam: Normal S1/S2 Heart Sounds Pulmonary Exam: Clear Bilateral Breath Sounds Airway Exam Known Difficult Airway: No Mallampati Class: 2 Mouth Opening: Normal (> 3cm) Thyromental Distance: Greater than 3 cm Neck Range of Motion: Full ROM Neck Circumference: Normal Teeth Condition: Normal Dentition ASA Classification ASA Score: ASA 2 Emergency Case?: No NPO Status NPO Status: Full Stomach Status Status: Other Anesthesia Plan Anesthesia Technique: Epidural Anesthesia Airway Planned: Natural Airway Monitors Used: Standard Monitors Preoperative Comments:: unable to complete preop prior due [employer] issues. Pt here for TOLAC. previous labor with epidural to section, epidural was loaded with 20 mL of chloroprocaine, but she was still having too much sensation. Spinal was going to be attempted, but baby was having decels and the decision was made to move forward with GA (glide grade 1)
--- NOTE | 2020-10-18 06:10 | OBCE_ITS ---
Date of service: 10/18/20 Time of Service: 06:10 Assessment and Plan Assessment and plan (1) Patient desires vaginal after section (): Status: Acute Assessment and plan: Appropriate candidate for trial of labor, and active labor. Pain control per epidural. Consenting done. Anticipate vaginal delivery (2) Gestational diabetes mellitus (GDM) affecting second : Status: Acute (3) History of hypertension: Status: Acute History of Present Illness History of Present Illness Chief Complaint: Prior section, plans trial of labor Narrative: Patient is a 29-year-old 2 para 1 who presents to the center at 38 weeks gestation. She has been having regular contractions approximately every 3 to 4 minutes which have been coming increasingly intense. She [facility]. This has been complicated by a diagnosis of gestational diabetes which has been well diet controlled. She also had COVID-19 during this in September for which she received monoclonal antibodies due to mild symptoms. She has no sequela since that time. She presented today in early labor and changed cervix from 3 to 4 cm 4 to 5 cm and her is requesting pain control. Again, labor plans, pain control, risks, benefits, alternatives of vaginal delivery versus trial of labor were discussed with the patient at length. She is consented for trial of labor after section for which she is a good candidate. In light of the fact that she is in active labor, OR crew is notified, anesthesia was called for both e pidural and to maintain in-house until after her delivery in case of need for emergent . Most recently, baby's been moving and active. Her contraction pattern was described previously she has no rupture of membranes at this point and she has no signs or symptoms of preeclampsia. At home her glucose monitoring has been adequate. She had a recent ultrasound confirming estimated weight of approximately 3100 g. As of note, her previous section was due to distress at the point of being completely dilated. Consults Consult date: 10/18/20 Review of Systems All systems reviewed & are unremarkable except as noted in HPI and below Constitutional Constitutional: Reports as per HPI ENT Ears, Nose, Mouth, and Throat: Reports system reviewed and no additional complaints, except as documented Cardiovascular Cardiovascular: Reports system reviewed and no additional complaints, except as documented, Denies chest pain and Denies irregular heart rhythm Respiratory Respiratory: Reports system reviewed and no additional complaints, except as documented, Denies chest congestion and Denies cough Gastrointestinal Gastrointestinal: Reports system reviewed and no additional complaints, except as documented Genitourinary Genitourinary: Reports as per HPI Psychiatric Psychiatric: Reports system reviewed and no additional complaints, except as documented [facility] Medical History (Updated 10/18/20 @ 06:15 by Opal Shrestha DO) 32 weeks gestation of Elevated glucose level Heart murmur flow murmur Pediatric Records requested: 10/03/16 History of varicella age 2 years Personal history of COVID-19 Surgical History (Updated 04/17/20 @ 15:04 by Lester Fajardo CNM) Previous section Family History Grandmother Diabetes Mother Hearing loss Injury related ( damage to ear drum) Grandmother Hearing loss Congenital. Wears hearing aids. Maternal Aunt Pancreatic cancer Social History Smoking/Tobacco Use Status: Never Smoking risk assessment performed?: Yes History History 2 Para 1 Hx # Term Pregnancies 1 Multiple births 0 Hx # Pregnancies 0 Ectopic pregnancies 0 AB induced 0 Hx Number of Living Children 1 AB spontaneous 0 Past Pregnancies Del. Date GA/Weeks # Outcome Route Wgt Sex Labor Lgth Anesthes ia Location Prov Complic 05/25/17 41 No Successful 6 lb 15.289 oz Female [facility] and Dr. Gilmore Delivery Date: 05/25/17 spont labor, meconium, epidural at 6 cm, pushed without descent, emergency C/S for distress, general anesthesia Bisi Joseph Exam Const General: cooperative, healthy appearing and uncomfortable Nutritional Appearance: average body habitus Orientation: alert and oriented x3 Eyes General: appearance normal, both eyes and all related structures Resp Effort & Inspection: normal respiratory effort Cardio Rate: regular rate Rhythm: regular rhythm Other: Cervical exam per field applications specialist, 4 to 5 cm Extrem General: no clubbing, cyanosis or edema Results Last Vital Signs Temp 97.8 F 10/18/20 04:38 Pulse 85 10/18/20 04:38 Resp 18 10/18/20 04:38 BP 122/84 10/18/20 04:38 Pulse Ox 97 10/18/20 04:38 Labs Result diagrams: 10/18/20 05:20 Labs: Laboratory Results - last 24 hr 10/18/20 10/18/20 05:15 05:20 WBC 9.04 RBC 3.75 L Hgb 11.6 Hct 34.2 L MCV 91.2 MCH 30.9 MCHC 33.9 RDW 13.8 Plt Count 169 MPV 12.5 H COVID-19 Source Nasal/nares
[2020-10-18] MEDS: FentaNYL/ROPIvacaine 2 mcg/ml and 0.1% 200 ML CADD Cassette EP (06:35)
[2020-10-18 06:36] LABS: COVID-19 PCR POSITIVE (Negative)
--- NOTE | 2020-10-18 06:49 | W.ANESNEU ---
Epidural/Spinal Catheter Date Performed: 10/18/20 Procedure Time: 06:06 Requesting Provider: Opal Shrestha Procedure Location: Obstetrics Reason Performed: Labor Epidural Standard Monitors Applied: ECG, Blood Pressure and SpO2 Patient Position: Sitting Sedation Given (Indicate Dose Given): No Sedation given Patient Mental Status: Awake Sterility: Hand Hygiene, Surgical Cap, Surgical Mask, Sterile Gloves, Sterile Drape/Sheet and Chlorhexidine Procedure Location: L3-L4 Interspace Epidural Needle: Tuohy 17 Guage Needle Length: 3.5 Inch Needle Approach: Midline Epidural Procedure: Skin Prepped, Sterile Drape Placed, 1% Lidocaine to skin and subcutaneous tissue with 25G needle, Tuohy Needle placed, AYLEEN to Saline Used, Epidural Catheter Placed, Negative Heme, Negative CSF Flow, Tuohy Needle Removed and Other (wirerenforced. ) Catheter Placed?: Catheter Placed Test Dose (Indicate Dose Given): 3ml 1.5% Lidocaine with 1:200K Epinephrine Given and Negative Test Dose Loss of Resistance Depth (cm): 7 Catheter depth at skin (cm): 14 Dressing: Tegaderm Applied, Mastisol Used and Dressing reinforced with Tape Epidural Provider Bolus (Indicate Dose Given): Total Ropivacaine 0.1% with Fentanyl 2mcg/ml Given from pump (ml) (5 ml bolus) Additives (Indicate Dose Given ): None Infusion Medication: New Infusion Medication Medication Infusion: Ropivacaine 0.1% with Fentanyl 2mcg/ml Maintenance Infusion Rate (ml/hour): 12 PCEA Bolus Dose (ml): 5 Post Procedure Pain score (0-10): 3 Block Level: T11 Paresthesia: None (Labor epidural requested by Jeanine Shrestha for trial of labor for . Pt states she has LLE numbness/tingling after epidural catheter placement ) Ultrasound: Used to jaden site Number of Attempts (See previous attempts in note section): 1 Procedure Tolerated: No Complications and Patient tolerated well Procedure Outcome: Successful Performed By: Susan Flores
--- NOTE | 2020-10-18 07:57 | W.PM.OBNL1 ---
Date of service: 10/18/20 Time of Service: 07:57 Informed Consent Informed Consent: Risk,Benefits,Alternatives Discussed and Vaginal after Pelvic Exam Dilation: 5 Effacement (%): 75 station: 0 Cervix Position: posterior Consistency: soft Vaginal Exam Presentation: Vertex Pooling: Negative Contractions Monitor Mode: External Contraction Frequency(min): every 3 minutes Intensity: Moderate/Strong Fetus A Monitor: External (US) Heart Rate Baseline: 130 Presentation: Vertex Variability: Moderate (6-25 BPM) Categories: Category I FHR Rhythm: Regular Characteristics: Normal Accelerations: 15 X 15 Decelerations: None Amniotic Membrane Status: Ruptured Rupture Method: Artifical Amniotic Fluid: Clear Amount: AROM for small amount of amniotic fluid Assessment and Plan Assessment and plan (1) Patient desires vaginal after section (): Status: Acute (2) Spontaneous onset of labor: Status: Acute Assessment and plan: AROM for clear fluid. Abarca placed. Encourage rest and anticipate . Dr. Shrestha is present on the unit and aware of patient's status. Objective Abnormal lab results 10/18/20 10/18/20 Range/Units 05:15 05:20 RBC 3.75 L (3.93-5.22) 10^6/uL Hct 34.2 L (36.0-46.0) % MPV 12.5 H (8.0-11.0) fL SARS-CoV-2 (PCR) Positive A* (Negative) Temp Pulse Resp BP Pulse Ox 97.8 F 71 18 113/67 98 10/18/20 04:38 10/18/20 07:04 10/18/20 04:38 10/18/20 07:04 10/18/20 06:43 Laboratory Results WBC 9.04 10^3/uL (4.4-10.8) 10/18/20 05:20 RBC 3.75 10^6/uL (3.93-5.22) L 10/18/20 05:20 Hgb 11.6 g/dL (11.2-15.7) 10/18/20 05:20 Hct 34.2 % (36.0-46.0) L 10/18/20 05:20 MCV 91.2 fL (80-95) 10/18/20 05:20 MCH 30.9 pg (27.0-33.0) 10/18/20 05:20 MCHC 33.9 % (32.0-36.0) 10/18/20 05:20 RDW 13.8 % (11.7-14.6) 10/18/20 05:20 Plt Count 169 10^3/uL (130-400) 10/18/20 05:20 MPV 12.5 fL (8.0-11.0) H 10/18/20 05:20 COVID-19 Source Nasal/nares 10/18/20 05:15 SARS-CoV-2 (PCR) Positive (Negative) A* 10/18/20 05:15 Patient ABO/Rh O Positive 10/18/20 05:20 Antibody Screen Negative 10/18/20 05:20 Subjective Patient Reports: No new Complaints Interval history since last seen: Resting comfortably after epidural. Complains of fatigue. Results Hemoglobin/Hematocrit: Hgb 11.6 g/dL (11.2-15.7) 10/18/20 05:20 Hct 34.2 % (36.0-46.0) L 10/18/20 05:20 Abnormal Lab Findings: Abnormal Labs 10/18/20 10/18/20 05:15 05:20 RBC 3.75 L Hct 34.2 L MPV 12.5 H SARS-CoV-2 (PCR) Positive A*
--- NOTE | 2020-10-18 10:00 | NUR.NOTE ---
Received call from Lab stating that routine Covid swab result is positive. Reviewed pt history with providers and determined that pt originally tested positive for Covid on 09/21/20. As pt and both are now greater than 10 days out from positive test they are considered recovered and require no additional precautions at this time. Nursing Claims Correspondence Clerk aware w/ no concerns. Nursing Note:
--- NOTE | 2020-10-18 11:40 | W.PM.OBNL1 ---
Date of service: 10/18/20 Time of Service: 11:40 Informed Consent Informed Consent: Risk,Benefits,Alternatives Discussed and Vaginal after Pelvic Exam Dilation: 8 Effacement (%): 100 station: +1 Cervix Position: mid Consistency: soft Vaginal Exam Presentation: Vertex Pooling: Positive Contractions Monitor Mode: External Contraction Frequency(min): 140 Intensity: Moderate Fetus A Monitor: External (US) Heart Rate Baseline: 140 Presentation: Vertex Variability: Moderate (6-25 BPM) Categories: Category I FHR Rhythm: Regular Accelerations: 15 X 15 Decelerations: None Amniotic Membrane Status: Ruptured Assessment and Plan Assessment and plan (1) Spontaneous onset of labor: Status: Acute Assessment and plan: anticipate Objective Abnormal lab results 10/18/20 10/18/20 Range/Units 05:15 05:20 RBC 3.75 L (3.93-5.22) 10^6/uL Hct 34.2 L (36.0-46.0) % MPV 12.5 H (8.0-11.0) fL SARS-CoV-2 (PCR) Positive A* (Negative) Temp Pulse Resp BP Pulse Ox 98.4 F 81 18 113/74 98 10/18/20 11:22 10/18/20 11:22 10/18/20 11:22 10/18/20 11:22 10/18/20 11:22 Laboratory Results WBC 9.04 10^3/uL (4.4-10.8) 10/18/20 05:20 RBC 3.75 10^6/uL (3.93-5.22) L 10/18/20 05:20 Hgb 11.6 g/dL (11.2-15.7) 10/18/20 05:20 Hct 34.2 % (36.0-46.0) L 10/18/20 05:20 MCV 91.2 fL (80-95) 10/18/20 05:20 MCH 30.9 pg (27.0-33.0) 10/18/20 05:20 MCHC 33.9 % (32.0-36.0) 10/18/20 05:20 RDW 13.8 % (11.7-14.6) 10/18/20 05:20 Plt Count 169 10^3/uL (130-400) 10/18/20 05:20 MPV 12.5 fL (8.0-11.0) H 10/18/20 05:20 COVID-19 Source Nasal/nares 10/18/20 05:15 SARS-CoV-2 (PCR) Positive (Negative) A* 10/18/20 05:15 Patient ABO/Rh O Positive 10/18/20 05:20 Antibody Screen Negative 10/18/20 05:20 Subjective Patient Reports: No new Complaints Interval history since last seen: Resting comfortably with epidorual. Abarca catheter in place. Results Hemoglobin/Hematocrit: Hgb 11.6 g/dL (11.2-15.7) 10/18/20 05:20 Hct 34.2 % (36.0-46.0) L 10/18/20 05:20 Abnormal Lab Findings: Abnormal Labs 10/18/20 10/18/20 05:15 05:20 RBC 3.75 L Hct 34.2 L MPV 12.5 H SARS-CoV-2 (PCR) Positive A*
[2020-10-18] MEDS: Oxytocin/Normal Saline 30 UNIT/500 ML BAG 95 UNITS IV (14:10)
--- NOTE | 2020-10-18 15:07 | W.OBDELIVERY ---
Date of service: 10/18/20 Time of Service: 15:07 OB Labor/ Delivery Information Baby A Delivery Delivery Method: Spontaneaous Presentation: Cephalic Vertex Position: Right Occipital Anterior Cord Description-Baby A: 3 Vessels Amniotic Fluid: Clear Estimated Blood Loss: 250 Delivery Outcome: Liveborn Transferred: Remains with Mother Note: Nathalie had excellent pain from epidural. She experienced some pressure and was examined and found to be fully dilated at 1320. She began pushing well. FHTs 130s during first stage of labor. FHTs 130s in second stage. Second stage huddle was done. Spontaneous delivery of female delivered in JANAE position. Baby was placed on mother's abdomen and dried and stimulated. Spontaneous cry. Cord was clamped and cut by the baby's grandmother. The placenta delivered spontaneously and appears to by intact with a three vessel cord. Pitocin 30 units IV was administered after delivery of the placenta. The perineum was inspected and revealed a small 2nd degree laceration. The baby did breastfeed. After delivery, Mother and baby and grandmother of the baby were stable and bonding well in the delivery room and there were no complications. Providers Nurse Molded Goods Controls Operator: Margarita Howard Aggregate Conveyor Operator: Yogesh Hou Nurse: Letty Alfaro Nurse: Preethi Shultz Labor/Delivery Information Number of Babies in Womb: 1 Steroids Given: None Reason Steroids Not Administered: N/A Group Beta Strep: Negative Antibiotics Administered: No Rubella Status: Immune Blood Type: O+ Varicella Immunity: Immune Maternal Complications: None Shoulder Dystocia: No Stages of Labor Onset of Labor Date: 10/17/20 Onset of Labor Time: 23:00 Complete Dilatation Date: 10/18/20 Complete Dilatation Time: 13:27 Labor - Stage 1 Duration: 24 hours and 0 minutes ROM Baby A: 10/18/20 ROM Baby A: 07:39 ROM Total Time- Baby A: [id number] Delivery Date-Baby A: 10/18/20 Delivery Time-Baby A: 14:03 Labor Stage 2 Duration: 36 minutes Placenta Delivery Date-Baby A: 10/18/20 Placenta Delivery Time-Baby A: 14:15 Labor-Stage 3 Duration: 12 minutes Total Length of Labor-Baby A: 15 hours and 3 minutes Placenta Status: Delivered Baby A Infant Gender: Female Gestational Status: Early Term (37-38.6 wks) Gestational Age in Weeks/Days: 38 Weeks and 0 Days Score-1 Minute Interval(Baby A) Heart Rate-1 minute: 100 BPM or Greater Respiratory Effort- 1 minute: Slow Respiration/Weak Cry Muscle Tone-1 minute: Active Movement Reflex Response-1 minute: Prompt Response Color-1 minute: Bluish Hands or Feet Total Score-1 minute: 8 Score-5 Minute Interval(Baby A) Heart Rate- 5 minute: 100 BPM or Greater Respiratory Effort-5 minute: Spontaneous/Strong Cry Muscle Tone-5 minute: Active Movement Reflex Response-5 minute: Prompt Response Color-5 minute: Bluish Hands or Feet Total Score- 5 minute: 9 Interventions Repair of Laceration Type: Perineal , Laceration Extension: Second Degree . Sponge Count Correct: No Sponges Placed in Vagina , Sharp Count Correct: Yes .
[2020-10-18] MEDS: Ibuprofen 600 MG TAB PO (17:40)
[2020-10-18] MEDS: Acetaminophen 325 MG TAB 650 MG PO (17:41)
[2020-10-19 00:02] VITALS: BP 107/71; PULSE 89; RESP 16; TEMP 36.4; O2SAT 98
[2020-10-19] MEDS: Ibuprofen 600 MG TAB PO (03:33)
[2020-10-19 04:28] VITALS: BP 118/79; PULSE 81; RESP 16; TEMP 36.4; O2SAT 98
[2020-10-19] MEDS: Acetaminophen 325 MG TAB 650 MG PO (06:38)
[2020-10-19 06:50] LABS: HCT 30.1 % (36.0-46.0); HGB 10.2 g/dL (11.2-15.7); MCH 30.8 pg (27.0-33.0); MCHC 33.9 % (32.0-36.0); MCV 90.9 fL (80-95); MPV 12.8 fL (8.0-11.0); Platelet Count 149 10^3/uL (130-400); RBC 3.31 10^6/uL (3.93-5.22); RDW 13.9 % (11.7-14.6); RDW-SD 46.4 fL; WBC 8.57 10^3/uL (4.4-10.8)
[2020-10-19 07:44] VITALS: BP 120/81; PULSE 83; RESP 18; TEMP 36.6; O2SAT 97
--- NOTE | 2020-10-19 12:12 | DSE_ITS ---
Date of service: 10/19/20 Time of Service: 12:13 DS: Diagnosis Discharge Diagnosis (1) Spontaneous onset of labor: Status: Acute Asessment and Plan: Caring for baby independently. S/P small 2nd degree l aceration. Pain is managed well with oral analgesics. Voiding without difficulty. well. A - stable mother and baby , Post day 1 P - Discharge to home today. Routine post instructions. [facility] Discharge Plan Discharge Details Reason For Visit: RULE OUT LABOR Admit Date/Time: 10/18/20 05:08 Admit Provider: Bisi Joseph Attending Provider: Bisi Joseph Primary Care Provider: Antonio Walter Home Meds and New Rx's Prescriptions: Continued with DHA-Folic Acid 400-32.5 mcg-mg tablet,chewable 1 tab PO DAILY RF: 0 Discontinued omeprazole magnesium [Prilosec OTC] 20 mg tablet,delayed release (DR/EC) 20 mg PO DAILY Qty: 30 RF: 4 aspirin 81 mg tablet,delayed release (DR/EC) 122 mg PO DAILY Qty: 90 RF: 3 No Action (DME) FreeStyle Nata 14 Day [place] Misc See Rx Instructions .ROUTE .MEDSUPPLY Qty: 1 RF: 0 (DME) FreeStyle Lite Strips Strip See Rx Instructions .ROUTE .MEDSUPPLY Qty: 100 RF: 3 (DME) blood-glucose meter [FreeStyle Lite Meter] Kit See Rx Instructions .ROUTE .MEDSUPPLY Qty: 1 RF: 0 (DME) lancets [FreeStyle Lancets] 28 gauge misc See Rx Instructions .ROUTE .MEDSUPPLY Qty: 100 RF: 3 (DME) FreeStyle Nata 2 Sensor Kit See Rx Instructions .ROUTE .MEDSUPPLY Qty: 1 RF: 6 Discharge Instructions Stand Alone Forms: BC Instructions, BC Post Vaginal Deliver Activity:: Activity as Tolerated Activity:: Activity as Tolerated Equipment/Supplies:: No Equipment Needed Diet:: As Tolerated OB:DS Summary Summary Vaginal Delivery Method: Spontaneaous Laceration Description: Perineal Laceration Extension: Second Degree Contraception Discussed Contraception Discussed: Yes (Mirena IUD), Gender-Baby A: Female weight: 6 lb 13 oz Status at Discharge Functional status at discharge: independent ambulation Overall status at discharge: patient is back to baseline Mental Status: mental status grossly normal Speech and Movement: speech and movement normal Mood: congruent mood Affect: normal affect Exam Physical Exam Vital signs: Temp Pulse Resp BP Pulse Ox 97.8 F 83 18 120/81 97 10/19/20 07:44 10/19/20 07:44 10/19/20 07:44 10/19/20 07:44 10/19/20 07:44 Vital Signs Reviewed: Yes Constitutional Constitutional: no acute distress Respiratory Exam Respiratory Exam: Normal Cardiovascular Exam Cardiovascular Exam: Normal Abdominal Exam Comments: Fundus firm down 1 FB, non tender Fundal Exam Fundus: Below Umbilicus Extremities Exam Extremity Exam: Normal Skin Exam Skin Exam: Normal Psychiatric Exam Psychiatric Exam: Normal [facility] Medical History (Updated 10/18/20 @ 08:01 by Margarita Howard CNM) 32 weeks gestation of Elevated glucose level Heart murmur flow murmur Pediatric Records requested: 10/03/16 History of varicella age 2 years Personal history of COVID-19 Surgical History (Updated 04/17/20 @ 15:04 by Lester Fajardo CNM) Previous section Family History Grandmother Diabetes Mother Hearing loss Injury related ( damage to ear drum) Grandmother Hearing loss Congenital. Wears hearing aids. Maternal Aunt Pancreatic cancer Social History Smoking/Tobacco Use Status: Never Smoking risk assessment performed?: Yes History History 2 Para 1 Hx # Term Pregnancies 1 Multiple births 0 Hx # Pregnancies 0 Ectopic pregnancies 0 AB induced 0 Hx Number of Living Children 1 AB spontaneous 0 Past Pregnancies Del. Date GA/Weeks # Outcome Route Wgt Sex Labor Lgth Anesthes ia Location Prov Complic 05/25/17 41 No Successful 6 lb 15.289 oz Female Lester and Dr. Gilmore Delivery Date: 05/25/17 spont labor, meconium, epidural at 6 cm, pushed without descent, emergency C/S for distress, general anesthesia Bisi Joseph DS: Data Vitals/I&O Vitals and I&O: Vital Signs Temperature 97.8 F 10/19/20 07:44 Pulse 83 10/19/20 07:44 Pulse Rhythm Regular 10/19/20 07:15 Respiratory Rate 18 10/19/20 07:44 Blood Pressure 120/81 10/19/20 07:44 Blood Pressure Mean 94 10/19/20 07:44 Pulse Oximetry 97 10/19/20 07:44 Oxygen Delivery Method Room Air 10/18/20 05:56 Oxygen Flow Rate 0 10/18/20 05:56 Pain Level 3 10/19/20 06:38 Intake & Output 10/18/20 10/19/20 10/19/20 23:59 11:59 23:59 Intake Total 1800 / 4050 750 / 750 Output Total 1775 / 3125 1850 / 1850 Balance -1100 / -1100 Intake: IV 800 / 800 Oral 1000 / 3250 750 / 750 Output: Urine 1775 / 3125 1850 / 1850 Other: Urine Color Pale [place] Data Completed and Pending Labs on day of discharge: Labs from last 24 hours 10/19/20 06:00 WBC 8.57 RBC 3.31 L Hgb 10.2 L Hct 30.1 L MCV 90.9 MCH 30.8 MCHC 33.9 RDW 13.9 Plt Count 149 MPV 12.8 H
--- NOTE | 2020-10-19 13:55 | W.ANESPOSTOP ---
Postoperative Evaluation Date, Time and Location Date Performed: 10/19/20 Time Performed: 13:56 Patient Location: Obstetrics Vital Signs Most Recent Imported Vital Signs: Most Recent Vital Signs Temp Pulse Resp BP Pulse Ox 36.6 C 83 18 120/81 97 10/19/20 07:44 10/19/20 07:44 10/19/20 07:44 10/19/20 07:44 10/19/20 07:44 Pain Score Most Recent Pain Score: Most Recent Pain Score Pain Level [Lower Abdomen] 1 10/19/20 04:28 Pain Level 3 10/19/20 06:38 Assessment Mental Status: Awake (Alert & Oriented to Patient Baseline) Airway and Respiratory Function: Patent airway with normal (patient baseline) respiratory exam Cardiovascular Function: Hemodynamically Stable Hydration Status: Adequately Hydrated Nausea & Vomiting: No Nausea or Vomiting Pain: Pt. Denies Any Pain Peripheral Nerve Block: Patient did not receive a nerve block
== END 2020-10-19 17:00 | disposition home or self-care (01) | DRG 807 ==
PROVIDERS: Advanced Practice Midwife; Admitting Provider Advanced Practice Midwife; PCP Physician Assistant; Visit Provider Advanced Practice Midwife
DX: O24.410 Gestational diabetes mellitus in pregnancy, diet controlled (principal); Z37.0 Single live birth; Z3A.38 38 weeks gestation of pregnancy; O34.219 Maternal care for unspecified type scar from previous cesarean delivery; N85.8 Other specified noninflammatory disorders of uterus; Z20.822 Contact with and (suspected) exposure to COVID-19; O70.1 Second degree perineal laceration during delivery; Z86.16 Personal history of COVID-19
CPT/HCPCS: 36415; 85027; 86850; 86900; 86901; 87635; J2370; J3010

== ENCOUNTER 2020-12-28 03:37 | Outpatient (CLI) | payer MEDICAID, SELFPAY ==
[2020-12-28 10:20] LABS: TSH (W/Ref FT4) 0.03 uIU/mL (0.36-3.74)
[2020-12-28 11:04] LABS: FREE T4 1.36 ng/dL (0.76-1.46)
[2020-12-28 11:09] LABS: GTT Comment See Comments
== END 2020-12-28 03:38 | disposition home or self-care (01) ==
LOC: LBO 03:37
PROVIDERS: PCP Physician Assistant; Visit Provider Advanced Practice Midwife
DX: E04.9 Nontoxic goiter, unspecified (principal); Z86.32 Personal history of gestational diabetes
CPT/HCPCS: 36415; 82951; 84439; 84443

== ENCOUNTER 2021-01-13 01:38 | Outpatient (CLI) | payer MEDICAID, SELFPAY ==
--- NOTE | 2021-01-13 | DI.US_ITS ---
Exam(s) US THYROID EXAM: US THYROID CLINICAL HISTORY: ENLARGED THYROID, E04.9. TECHNIQUE: Ultrasound thyroid performed using standard protocol. COMPARISON: US US OB DENISE WEIGHT from 10/13/2020 FINDINGS: RIGHT THYROID LOBE: Measures 1.6 cm AP x 2.4 cm wide x 5.3 cm craniocaudal LEFT THYROID LOBE: Measures 1.5 cm AP x 1.8 wide x 5.1 cm craniocaudal ISTHMUS: Upper normal thickness. There are no nodules in the isthmus. There are no focal nodules in either lobe. However, the echotexture of both lobes as well as the ist hmus is heterogeneous, consistent with probable lymphocytic infiltration Blood flow to both lobes does not appear grossly hyperemic to suggest Graves disease. LYMPH NODES: There is no significant adenopathy. IMPRESSION: 1. Both thyroid lobes are upper normal -minimally prominent size with uniformly heterogeneous echotex ture but no distinct nodules in either lobe nor in the isthmus. Findings are most probably consisten t with post inflammatory sequela such as post Do's thyroiditis or other infiltrative disorder. 2. There is no significant lymphadenopathy. DATA REPOSITORY:
== END 2021-01-13 01:58 ==
PROVIDERS: PCP Physician Assistant; Visit Provider Physician Assistant
DX: E04.9 Nontoxic goiter, unspecified (principal)
CPT/HCPCS: 76536

== ENCOUNTER 2021-02-24 16:37 | Outpatient (REF) | payer MEDICAID, SELFPAY ==
[2021-02-26 12:12] LABS: COVID-19 RT-PCR UVMMC Result Negative (Negative)
== END 2021-02-24 16:38 | disposition home or self-care (01) ==
LOC: LBN 16:37
PROVIDERS: PCP Physician Assistant; Visit Provider Physician Assistant Medical
DX: Z20.822 Contact with and (suspected) exposure to COVID-19 (principal); J02.9 Acute pharyngitis, unspecified
CPT/HCPCS: U0003

== ENCOUNTER 2021-07-09 19:35 | Outpatient (REF) | payer BC, MEDICAID, SELFPAY ==
[2021-07-09 20:06] LABS: FREE T4 0.73 ng/dL (0.76-1.46); TSH 3.03 uIU/mL (0.36-3.74)
== END 2021-07-09 19:36 | disposition home or self-care (01) ==
LOC: LBN 19:35
PROVIDERS: PCP Physician Assistant; Visit Provider Physician Assistant
DX: E07.81 Sick-euthyroid syndrome (principal)
CPT/HCPCS: 84439; 84443

== ENCOUNTER → 2021-11-26 00:05 | Outpatient (CLI) | payer BC, MEDICAID, SELFPAY ==
--- NOTE | 2021-11-26 13:30 | DI.US_ITS ---
Exam(s) US BREAST RT LIMITED MG MAMMO DIAGNOSTIC BI EXAM: US BREAST RT LIMITED CLINICAL HISTORY: RT BREAST LUMP/NODULE APPROXIMATELY 2-3 O'CLOCK, N63.0 TECHNIQUE: Ultrasound performed using standard protocol. COMPARISON: US US THYROID from 01/13/2021 FINDINGS: Mammogram and right breast ultrasound are interpreted in conjunction. Patient reportedly has questio n of palpable abnormality medially at the chest wall in the right breast. Mammographically there is no dominant mass or clumped microcalcification in either breast. The breas ts are of moderate radiodensity. Breast ultrasound shows no evidence of a mass or cyst. IMPRESSION: No specific evidence of malignancy at this time. Appropriate clinical follow-up recommended. BI-RADS Cat 1 - Negative Breast Density - Category B - Scattered areas of fibroglandular density DATA REPOSITORY:
== END ==
PROVIDERS: PCP Physician Assistant; Visit Provider Physician Assistant
DX: N63.12 Unspecified lump in the right breast, upper inner quadrant (principal); R92.8 Other abnormal and inconclusive findings on diagnostic imaging of breast
CPT/HCPCS: 76642; 77062; 77066; G0279

== ENCOUNTER 2022-01-17 16:39 | Outpatient (REF) | payer BC, MEDICAID, SELFPAY ==
[2022-01-17 15:55] LABS: TSH 3.53 uIU/mL (0.36-3.74)
== END 2022-01-17 16:40 | disposition home or self-care (01) ==
LOC: NCHCN 16:39
PROVIDERS: PCP Physician Assistant; Visit Provider Physician Assistant
DX: E07.81 Sick-euthyroid syndrome (principal)
CPT/HCPCS: 84439; 84443

== ENCOUNTER 2023-08-18 12:02 | Outpatient (REF) | payer BC, SELFPAY ==
[2023-08-18 16:23] LABS: ALT 33 U/L (14-59); AST 16 U/L (15-37); Albumin 3.7 g/dL (3.4-5.0); Alkaline Phosphatase 56 U/L (46-116); Anion Gap 8.8 mmol/L (3-11); BUN 7 mg/dL (7-18); Bilirubin, Total 0.3 mg/dL (0.2-1.0); CO2 27.2 mmol/L (21.0-32.0); CREATININE 0.7 mg/dL (0.55-1.02); Calcium 9.1 mg/dL (8.5-10.1); Calculated LDL 89 mg/dL (<100); Chloride 106 mmol/L (98-107); Cholesterol 155 mg/dL (<200); Estimated GFR 117.77 (mL/min/1.73m2); Glucose 99 mg/dL (74-106); HDL Cholesterol 38 mg/dL (40-60); Potassium 4.2 mmol/L (3.5-5.1); Sodium 142 mmol/L (136-145); Total Protein 6.9 g/dL (6.4-8.2); Triglyceride 140 mg/dL (<150)
[2023-08-18 16:40] LABS: FREE T4 1.01 ng/dL (0.76-1.46)
[2023-08-18 22:52] LABS: Prolactin 4.8 ng/mL (See Note)
== END 2023-08-18 12:03 | disposition home or self-care (01) ==
LOC: NCHCN 12:02
PROVIDERS: PCP Physician Assistant; Referring Provider Physician Assistant; Visit Provider Physician Assistant
DX: N64.3 Galactorrhea not associated with childbirth (principal); Z13.220 Encounter for screening for lipoid disorders
CPT/HCPCS: 80053; 80061; 84146; 84439; 84443

== ENCOUNTER 2024-04-24 17:02 | Outpatient (REF) | payer BC, SELFPAY ==
--- NOTE | 2024-04-24 16:30 | PAPFT_PTH ---
PATIENT: Nathalie Lima LOC: [facility]#:[id number] AGE/SX: 33/F ROOM: RE04/24/[address]: Nadia Miguel MD : 1990 BED: DIS: 04/24/2024 SPEC #: [id number] RECD: 04/24/24 17:03 STATUS: ERI REQ #: [id number] GURJIT: 04/24/24 16:[address]: Nadai Miguel DEPT: [facility] Cytology RECD BY: Bree Scanlon ENTERED: 04/24/24 17:04 SP TYPE: PAPFT OTHR DR: Antonio Walter Tissues: 1 - CX/ENDOCX FOR PAP SMEARS Procedures: PAP THIN PREP/[facility] Screening HPV DNA PROBE Comments: [id number] (HPV 16 & 18/45)
--- OUTSIDE RECORDS SUMMARY | 2024-04-24 17:03 | XMS_ITS | Referral Summary ---
Author Organization [facility] Address [address] [place] [address] Care Team Providers Care Pediatric Associate Name Role Phone Unknown, Provider Primary Care Provider Unava ilable Social History Tobacco Use Types Packs/Day Years Used Date Smoking Tobacco: Never Assessed Comments Unknown Sex and Gender Information Value Date Recorded Sex Assigned at Not on file Legal Sex Female 8:43 EDT Gender Identity Not on file Sexual Orientation Not on file Plan of Treatment Not on file Care Teams Pediatric Associate Relationship Specialty Start Date End Date Unknown, Provider, PCP - General 01/28/13
--- OUTSIDE RECORDS SUMMARY | 2024-04-24 17:03 | XMS_ITS | Encounter Summary ---
Author Organization [facility] Address [address] [place] [address] Care Team Providers Care Poultry Cutter Name Role Phone Unknown, Provider Primary Care Provider Unava ilable Encounter Details Date Type Department Care Team (Late st Contact Info) Description 01/27/2014 Results Only [facility] Laboratory Services - [facility] [place] [address], [place] [id number] Ila Martinez, [facility] [address] [place] [address] [place] [address] Social History Tobacco Use Types Packs/Day Years Used Date Smoking Tobacco: Never Assessed Comments Unknown Sex and Gender Information Value Date Recorded Sex Assigned at Not on file Legal Sex Female 8:43 EDT Gender Identity Not on file Sexual Orientation Not on file documented as of this encounter Plan of Treatment Not on file documented as of this encounter Procedures Procedure Name Priority Date/Time Associated Diagnosis Comments PAP TEST- RESULT ONLY Routine 01/27/2014 0:00 EDT documented in this encounter Results * PAP TEST- RESULT ONLY (01/27/2014 0:00 EDT) Pathology Report: CYTOPATHOLOGY REPORT Reports generated via electronic interface contain original data; however they are lacking the format of the original report. Caution should be taken when reading/interpreti ng unformatted reports. Name: ? STEVENBELEN ROTHMAN ? Accession #: ? [id number] : ? 1990 (Age: 23) ??F ?Collect Date: ? 01/27/2014 Location: ? [facility] ? Receive Date: ? 01/28/2014 Provider: ?ILA MARTINEZ SERVICE WORKER HELPER Copy to: ?TEGAN MOULTON MD ? Specimen/Source: ?Pap Test, Cervix/Endocervix, ThinPrep Imaging System with manual evaluation Last Menstrual Period: ? 12/31/13 Hormonal/Contracep tive Status: ? Oral contraceptives ? SPECIMEN ADEQUACY ? Satisfactory for Evaluation - transformation zone component absent GENERAL CATEGORIZATION ? Negative for Intraepithelial Lesion or Malignancy ? Document reviewed and electronically signed by: ? LYRIC Key(ASCP) ? Report Date: ??02/03/2014 10:52 End of Report [facility] 01/27/2014 01/28/2014 us Ila Martinez SERVICE WORKER HELPER PATHOLOGY ORDERABLES Final R esult [facility] [address] [place] [address] documented in this encounter Visit Diagnoses Not on filedocumented in this encounter Care Teams Poultry Cutter Relationship Specialty Start Date End Date Unknown, Provider, PCP - General 01/28/13 documented as of this encounter
--- OUTSIDE RECORDS SUMMARY | 2024-04-24 17:03 | XMS_ITS | Encounter Summary ---
Author Organization [facility] Address [address] [place] [address] Care Team Providers Care Paster Supervisor Name Role Phone Unknown, Provider Primary Care Provider Unava ilable Encounter Details Date Type Department Care Team (Late st Contact Info) Description 06/29/2017 Results Only [facility]- [facility] [phone] Lester Logan CNM [address] [place], [place] [id number] Social History Tobacco Use Types Packs/Day Years [...] Diagnosis Comments PAP TEST- RESULT ONLY Routine 06/29/2017 0:00 EST documented in this encounter Results * PAP TEST- RESULT ONLY (06/29/2017 0:00 EST) Pathology Report: CYTOPATHOLOGY REPORT Reports generated via electronic interface contain original data; however they are lacking the format of the original report. Caution should be taken when reading/interpreti ng unformatted reports. Name: ? NATHALIE LIMA ? Accession #: ? [id number] : ? 1990 (Age: 26) ??F ?Collect Date: ? 06/29/2017 Location: ? [facility] ? Receive Date: ? 06/30/2017 Provider: ?LESTER LOGAN CNM Copy to: ? Specimen/Source: ?Pap Test, Cervix, ThinPrep Imaging System with manual evaluation Last Menstrual Period: ? Menstrual/Pregnanc y Status: ? Post ? SPECIMEN ADEQUACY ? Satisfactory for Evaluation - transformation zone component present GENERAL CATEGORIZATION ? Negative for Intraepithelial Lesion or Malignancy ? Document reviewed and electronically signed by: ? Tri Griffiths [facility](ASCP) ? Report Date: ??07/10/2017 10:08 End of Report [facility] 06/29/2017 06/30/2017 us Elenazoila Tana CNM PATHOLOGY ORDERABLES Final Resul t [facility] [address] [place] [address] documented in this encounter Visit Diagnoses Not on filedocumented in this encounter Care Teams Paster Supervisor Relationship Specialty Start Date End Date Unknown, Provider, PCP - General 01/28/13 documented as of this encounter
--- OUTSIDE RECORDS SUMMARY | 2024-04-24 17:03 | XMS_ITS | Encounter Summary ---
Author Organization [facility] Address [address] [place] [address] Care Team Providers Care Automat Car Attendant Name Role Phone Unknown, Provider Primary Care Provider Shravan ildamion Encounter Details Date Type Department Care Team (Late st Contact Info) Description 08/18/2023 Lab Requisition [facility] Medicine - [place] [facility] [address] [place] [address] Outr Resulting Lab, Provider Social History Tobacco Use Types Packs/Day Years [...] Procedure Name Priority Date/Time Associated Diagnosis Comments PROLACTIN Routine 08/18/2023 8:30 EST documented in this encounter Results * PROLACTIN (08/18/2023 8:30 EST) Prolactin 4.8 See Note ng/mL 08/18/2023 22:47 EST [facility] Comment: NOTE: Female Reference Ranges: PHYSIOLOGICAL STATUS ?REFERENCE RANGE ? Postmenopausal ?1.8 - 20.3 ng/mL ?9.7 - 208.5 ng/mL Non- ?2.8 - 29.2 ng/mL Blood VENOUS BLOOD / Unknown 08/18/2023 8:30 EST 08/18/2023 21:39 EST us Provider Outr Resulting Lab CHEMISTRY & BLOOD GA S ORDERABLES Final Result [facility] [address] [place] [address] documented in this encounter Visit Diagnoses Not on filedocumented in this encounter Care Teams Automat Car Attendant Relationship Specialty Start Date End Date Unknown, Provider, PCP - General 01/28/13 documented as of this encounter
--- OUTSIDE RECORDS SUMMARY | 2024-04-24 17:03 | XMS_ITS | Encounter Summary ---
Author Organization [facility] Address [address] [place] [address] Care Team Providers Care Cuff Setter Lockstitch Name Role Phone Unknown, Provider Primary Care Provider Unava ilable Encounter Details Date Type Department Care Team (Late st Contact Info) Description 01/25/2013 Results Only [facility] Laboratory Services - [facility] [place] [address] [place], [place] [id number] Ila Martinez, [facility] [address] [place] [address] [place] [address] Social History Tobacco Use Types [...] Diagnosis Comments PAP TEST- RESULT ONLY Routine 01/25/2013 0:00 EDT documented in this encounter Results * PAP TEST- RESULT ONLY (01/25/2013 0:00 EDT) Pathology Report: CYTOPATHOLOGY REPORT Reports generated via electronic interface contain original data; however they are lacking the format of the original report. Caution should be taken when reading/interpreti ng unformatted reports. Name: ? STEVENBRENNASERGIO ? Accession #: ? [id number] : ? 1990 (Age: 22) ??F ?Collect Date: ? 01/25/2013 Location: ? [facility] ? Receive Date: ? 01/28/2013 Provider: ?ILA MARTINEZ ENERGY SALES CONSULTANT Copy to: ?TEGAN MOULTON MD ? Specimen/Source: ?Pap Test, Cervix/Endocervix, ThinPrep Imaging System with manual evaluation Last Menstrual Period: ? 01/08/2013 Hormonal/Contracep tive Status: ? Oral contraceptives Other: ? Additional clinical information: 1st pap ? SPECIMEN ADEQUACY ? Satisfactory for Evaluation - transformation zone component present GENERAL CATEGORIZATION ? Negative for Intraepithelial Lesion or Malignancy ? Document reviewed and electronically signed by: ? Ruperto Randhawa, [place](ASCP) ? Report Date: ??02/04/2013 08:04 End of Report [facility] 01/25/2013 01/28/2013 us Ila Martinez ENERGY SALES CONSULTANT PATHOLOGY ORDERABLES Final R esult [facility] FUENT[facility] [address] [place] [address] documented in this encounter Visit Diagnoses Not on filedocumented in this encounter Care Teams Cuff Setter Lockstitch Relationship Specialty Start Date End Date Unknown, Provider, PCP - General 01/28/13 documented as of this encounter
--- OUTSIDE RECORDS SUMMARY | 2024-04-24 17:03 | XMS_ITS | Clinical Summary ---
Author Organization [facility] Address [address] [place] [address] Care Team Providers Care Faucets Assembler Name Role Phone Unknown, Provider Primary Care Provider Unava ilable Social History Tobacco Use Types Packs/Day Years Used Date Smoking Tobacco: Never Assessed Comments Unknown Sex and Gender Information Value Date Recorded Sex Assigned at Not on file Legal Sex Female 8:43 EDT Gender Identity Not on file Sexual Orientation Not on file Plan of Treatment Health Maintenance Due Date Last Done Comments Hepatitis C Screen 1990 Hepatitis B Vaccine (1 of 3 - 19+ 3-dose series) 12/08 COVID-19 Vaccine ( - 2023- season) 2024 Care Teams Faucets Assembler Relationship Specialty Start Date End Date Unknown, Provider, PCP - General 01/28/13
--- OUTSIDE RECORDS SUMMARY | 2024-04-24 17:03 | XMS_ITS | Encounter Summary ---
Author Organization [facility] Address [address] [place] [address] Care Team Providers Care Container Finishing Inspector Name Role Phone Unknown, Provider Primary Care Provider Unava ilable Encounter Details Date Type Department Care Team (Late st Contact Info) Description 02/25/2021 Lab Requisition [facility] Pathology & Laboratory Medicine - [facility] [address] [place] [address] Outr Resulting Lab, Provider Social History Tobacco [...] Procedure Name Priority Date/Time Associated Diagnosis Comments ZZCOVID-19 TEST [facility] PCR Today 02/24/2021 16:15 EDT COVID-19 TESTING Routine 02/24/2021 16:1 5 EDT documented in this encounter Results * COVID-19 TEST [facility] PCR (02/24/2021 16:15 EDT) Swab ENTIRE NASOPHARYNX / Unknown 02/24/2021 16:15 EDT 02/25/2021 16:05 EDT us Provider Outr Resulting Lab MICROBIOLOGY - GENER AL ORDERABLES Final Result [facility] [address] [place] [address] * COVID-19 TESTING (02/24/2021 16:15 EDT) COVID-19 rt-PCR Result Negative Negative 02/26/2021 12:[address] [facility] Comment: This test has not been FDA cleared or approved. This test has been authorized by FDA under an EUA for use by authorized laboratories. This test has been authorized only for detection of nucleic acid from 2019-nCoV, not for any other viruses or pathogens. This test is only authorized for the duration of the declaration that circumstances exist justifying the authorization of emergency use of in vitro diagnostic tests for detection and/or diagnosis of 2019-nCoV under section 564(b)(1) of Act, 21 U.S.C ?? 360bbb-3(b) (1), unless the authorization is terminated or revoked sooner. Negative results do not preclude 2019-nCoV infection and should not be used as the sole basis for treatment or other patient management decisions. Negative results must be combined with clinical observations, patient history, and epidemiological information. Testing was performed using the emely SARS-CoV-2 assay ([employer] on the Emely 6800 System Performing Lab Emely [address] [facility] Lab 02/26/2021 12:[address] [facility] Swab 02/24/2021 16:1 5 EDT 02/25/2021 16:05 EDT us Provider Outr Resulting Lab MICROBIOLOGY - GENER AL ORDERABLES Final Result [facility] [address] [place] [address] documented in this encounter Visit Diagnoses Not on filedocumented in this encounter Care Teams Container Finishing Inspector Relationship Specialty Start Date End Date Unknown, Provider, PCP - General 01/28/13 documented as of this encounter
--- OUTSIDE RECORDS SUMMARY | 2024-04-24 17:03 | XMS_ITS | Encounter Summary ---
Author Organization [facility] Address [address] [place] [address] Care Team Providers Care Bearing Inspector Name Role Phone Unknown, Provider Primary Care Provider Unava ilable Encounter Details Date Type Department Care Team (Late st Contact Info) Description 05/06/2020 Lab Requisition [facility] Pathology & Laboratory Medicine - [facility] [address] [place] [address] Outr Resulting Lab, Provider Social History Tobacco [...] Procedure Name Priority Date/Time Associated Diagnosis Comments HIV 1/2 ANTIGEN AND ANTIBODY, 4TH GENERATION After X-Ray 04/17/2020 16:04 EST documented in this encounter Results * HIV 1/2 ANTIGEN AND ANTIBODY, 4TH GENERATION (04/17/2020 16:04 EST) HIV 1 and 2 Antibody/p24 Antigen, 4th Generation Negative Negative 05/26/2020 13:[address] [facility] Comment: If acute HIV-1 infection is suspected in a high risk ??patient, submit plasma specimen for HIV-1 RNA quantitation test. Fourth Generation assay performed on the Siemens Centaur. Blood VENOUS BLOOD / Unknown 04/17/2020 16:04 EST 05/26/2020 13:09 EST us Provider Outr Resulting Lab IMMUNOLOGY AND SEROL OGY ORDERABLES Final Result [facility] [address] [place] [address] documented in this encounter Visit Diagnoses Not on filedocumented in this encounter Care Teams Bearing Inspector Relationship Specialty Start Date End Date Unknown, Provider, PCP - General 01/28/13 documented as of this encounter
--- OUTSIDE RECORDS SUMMARY | 2024-04-24 17:03 | XMS_ITS | Encounter Summary ---
Author Organization [facility] Address [address] [place] [address] Care Team Providers Care Weapons Engineer Name Role Phone Unknown, Provider Primary Care Provider Unava ilable Encounter Details Date Type Department Care Team (Late st Contact Info) Description 05/04/2015 Results Only [facility] [phone] Ila Martinez, [address] [place] [address] Social History Tobacco Use Types [...] Diagnosis Comments PAP TEST- RESULT ONLY Routine 05/04/2015 0:00 EST documented in this encounter Results * PAP TEST- RESULT ONLY (05/04/2015 0:00 EST) Pathology Report: CYTOPATHOLOGY REPORT Reports generated via electronic interface contain original data; however they are lacking the format of the original report. Caution should be taken when reading/interpreti ng unformatted reports. Name: ? NATHALIE HARRIS ? Accession #: ? [id number] : ? 1990 (Age: 24) ??F ?Collect Date: ? 05/04/2015 Location: ? [facility] ? Receive Date: ? 05/05/2015 Provider: ?ILA MARTINEZ REVENUE INTEGRITY ANALYST Copy to: ?TEGAN MOULTON MD ? Specimen/Source: ?Pap Test, Cervix/Endocervix, ThinPrep Imaging System with manual evaluation Last Menstrual Period: ? 04/23/2015 ? SPECIMEN ADEQUACY ? Satisfactory for Evaluation - transformation zone component present GENERAL CATEGORIZATION ? Negative for Intraepithelial Lesion or Malignancy ? Document reviewed and electronically signed by: ? LYRIC Parker(ASCP) ? Report Date: ??05/06/2015 10:02 End of Report [facility] 05/04/2015 05/05/2015 us Ila Martinez REVENUE INTEGRITY ANALYST PATHOLOGY ORDERABLES Final R esult [facility] [address] [place] [address] documented in this encounter Visit Diagnoses Not on filedocumented in this encounter Care Teams Weapons Engineer Relationship Specialty Start Date End Date Unknown, Provider, PCP - General 01/28/13 documented as of this encounter
== END 2024-04-24 17:03 | disposition home or self-care (01) ==
LOC: LBN 17:02
PROVIDERS: PCP Physician Assistant; Visit Provider Obstetrics & Gynecology
DX: Z12.4 Encounter for screening for malignant neoplasm of cervix (principal)
CPT/HCPCS: 88142; 87624

== ENCOUNTER 2025-04-08 06:47 | Day surgery (SDC) | payer BC, SELFPAY ==
[2025-04-08 07:00] VITALS: BP 121/81; PULSE 90; RESP 16; TEMP 37; O2SAT 98
[2025-04-08] MEDS: Doxycycline Hyclate 100 MG CAP 200 MG PO (07:23)
[2025-04-08] MEDS: Lactated Ringers 1,000 ML 125 ML IV (07:35)
[2025-04-08 07:40] LABS: HCT 35.3 % (36.0-46.0); HGB 12.2 g/dL (11.2-15.7); MCH 30.4 pg (27.0-33.0); MCHC 34.6 % (32.0-36.0); MCV 88 fL (80-95); MPV 11.6 fL (8.0-11.0); Platelet Count 205 10^3/uL (130-400); RBC 4.01 10^6/uL (3.93-5.22); RDW 12.0 % (11.7-14.6); RDW-SD 38.8 fL; WBC 6.60 10^3/uL (4.4-10.8)
--- NOTE | 2025-04-08 07:53 | W.ANESPRE ---
General Info Date of Service Date Performed: 04/08/25 Height: 5 ft 2 in Weight: 73.1 kg Body Mass Index (BMI): 29.5 Surgical Procedure: Operation Date: 04/08/25 08:40 Proposed Procedure Side Surgeon pepe Kelly D+C Nadia Miguel MD Meds Allergies and Home Medications Allergies Allergy/AdvReac Type Severity Reaction Status Date / Time No Known Allergies Allergy Verified 04/08/25 07:06 Home Medication Medication Instructions Recorded vitamins no.121-iron 28 1 tab PO DAILY 03/03/25 mg-folic acid 800 mcg tablet Current Visit Medications: Current Medications Generic Name Dose Route Start Last Admin Trade Name Freq PRN Reason Stop Dose Admin Doxycycline Hyclate 200 mg 04/08/25 06:00 04/08/25 07:23 Doxycycline Hyclate 100 Mg Cap PO 04/08/25 23:59 200 mg PREOP CARRI Administration Ringer's Solution 1,000 mls @ 125 mls/hr 04/08/25 06:00 04/08/25 07:35 IV 04/08/25 23:59 125 mls/hr INFUSION CARRI Administration IV Miscellaneous Supplies 1 each 04/08/25 06:00 Iv Access IV 04/08/25 23:59 DIRECTED CARRI Sodium Chloride 0 ml 04/08/25 06:00 Normal Saline Flush 10 Ml Syr IV 04/08/25 23:59 PRN PRN Sodium Chloride 0 ml 04/08/25 06:00 Normal Saline 10 Ml Vial IJ 04/08/25 23:59 DIRECTED PRN Sterile Water 0 ml 04/08/25 06:00 Water,Injection,Sterile 10 Ml Vial IJ 04/08/25 23:59 DIRECTED PRN PFSH Active Problems Active Problems: Problem Status Onset Code Missed Acute O02.1 BMI 33.0-33.9,adult Acute Z68.33 Medical History Medical History Enlarged thyroid Personal history of COVID-19 History of hypertension History of varicella age 2 years Heart murmur flow murmur Pediatric Records requested: 10/03/16 Surgical History Surgical History Previous section Tobacco Smoking/Tobacco Use Status: Never Passive smoking exposure: No Alcohol Alcohol Intake: former Substance Use Substance use: Never Substance use type: does not use Prental History History 2 Para 2 Hx # Term Pregnancies 2 Multiple births 0 Hx # Pregnancies 0 Ectopic pregnancies 0 AB induced 0 Hx Number of Living Children 2 AB spontaneous 0 Past Pregnancies Del. Date GA/Weeks # Preg Succ Route Wgt Sex Labor Lgth Anesthesia Location Prov Complic 05/25/17 41 No 3155 g Female Anea and Dr. Gilmore 10/18/20 38 No vaginal 15 hrs 3 minutes local JABIER Ferrell 04/07/25 8 No No Delivery Date: 05/25/17 Last Updated by: Bisi Joseph spont labor, meconium, epidural at 6 cm, pushed without descent, emergency C/S for distress, general anesthesia Delivery Date: 10/18/20 Last Updated by: CARIDAD Smiley Delivery Date: 04/07/25 Last Updated by: Nadia Miguel MD MAB @[facility]. D&C planned Vital Signs and Lab Results Vital Signs Most Recent Vital Signs in EMR: Most Recent Vital Signs Temp Pulse Resp BP Pulse Ox 37 C 90 16 121/81 98 04/08/25 07:00 04/08/25 07:00 04/08/25 07:00 04/08/25 07:00 04/08/25 07:00 Lab Results 04/08/25 07:28 Complete Blood Count: WBC, (4.4-10.8) 6.60 10^3/uL Today, 07:28 RBC, (3.93-5.22) 4.01 10^6/uL Today, 07:28 Hgb, (11.2-15.7) 12.2 g/dL Today, 07:28 Hct, (36.0-46.0) 35.3 % L Today, 07:28 Plt Count, (130-400) 205 10^3/uL Today, 07:28 Anesthesia Assessment and Plan Anesthesia History Personal History: No History of Anesthesia Complications Family History: No Family History of Anesthesia Complications Exercise Tolerance Exercise Tolerance: Metabolic Equivalents>4 Pertinent Negatives Pertinent Negatives: No Symptoms of GERD, No Major Cardiovascular Symptoms or Complaints and No Major Pulmonary Symptoms or Complaints Cardiac & Pulmonary Exam Cardiac Exam: Normal S1/S2 Heart Sounds Pulmonary Exam: Clear Bilateral Breath Sounds Implantable Cardiac Device Does patient have a Pacemaker or an ICD?: No Airway Exam Known Difficult Airway: No Mallampati Class: 2 Mouth Opening: Normal (> 3cm) Thyromental Distance: Greater than 3 cm Neck Range of Motion: Full ROM Neck Circumference: Normal Teeth Condition: Normal Dentition ASA Classification ASA Score: ASA 2 Emergency Case?: No NPO Status NPO Status: NPO Clears >2 hours, Solids >8 hours Status Status: Other ( demise 8.5-10 wks) Anesthesia Plan Resuscitation Status: Full Code Anesthesia Technique: General Anesthesia Airway Planned: Natural Airway Monitors Used: Standard Monitors
[2025-04-08 07:58] VITALS: BMI 29.5
[2025-04-08] MEDS: Lidocaine 1% Pres-Free W/EPI 1/200,000 10 ML VIAL (08:50)
--- NOTE | 2025-04-08 08:52 | POCSPONT_PTH ---
PATIENT: Nathalie Lima LOC: [facility] U#:[id number] AGE/SX: 34/F ROOM: RE04/08/[address]: Nadia Miguel MD : 1990 BED: DIS: 04/08/2025 SPEC #: [id number] RECD: 04/08/25 12:50 STATUS: ERI REQ #: [id number] GURJIT: 04/08/25 08:[address]: Nadia Miguel DEPT: Surgical Specimen RECD BY: Bree Scanlon ENTERED: 04/08/25 12:51 SP TYPE: POCSPABIEL VALENTIN DR: Antonio Walter Tissues: 1 - ,SPONTANEOUS Procedures: GROSS AND MICRO LEVEL 4 Comments: [id number]
[2025-04-08 09:04] VITALS: BP 96/52; PULSE 88; RESP 20; TEMP 36.5; O2SAT 97
--- NOTE | 2025-04-08 09:06 | W.PM.OP ---
Operative Note Operative Note PRE-OP DIAGNOSIS: MAB @8.5wks POST-OP DIAGNOSIS: same PROCEDURE: Suction D&C SURGEON: Nadia Miguel Refer to Anesthesia Record ESTIMATED BLOOD LOSS: 5 COMPLICATIONS: None Patient was transported to: same day Patient's condition: stable Indications: Pt is a 34yo with an 8.5wk MAB who opts for surgical management. Findings: Normal appearing external genitalia, vagina and cervix. Uterus normal size. Procedure Description: After informed consent was signed the patient was taken to the operating room and given General room air anesthesia. SCDs were placed on her legs. She was prepped and draped in the dorsal lithotomy position in the [facility]. A time out was performed. Her bladder was drained of urine if not done immediately prior to entrance to the OR. Exam under anesthesia revealed normal external genitalia, vagina normal for age and a normal sized uterus. A speculum was placed into the vagina to reveal the cervix. The anterior lip of the cervix was grasped with a single tooth tenaculum. A paracervical block was given with 8ml of 0.25% marcaine with epi. The cervix was dilated. The suction device was assembled and turned on. The uterine cavity was gently suctioned to remove the products of conception. A curettage with the suction curette revealed no further significant tissue and there was a gritty texture in all four quadrants of the uterine cavity. There was minimal bleeding and the uterus was noted to be firm. The tenaculum was removed from the cervix with good hemostasis with some pressure. The speculum was removed from the vagina. The patient was placed back into the supine position. She was moved to the stretcher and taken to the recovery room in stable condition. Date of Procedure: 04/08/25
--- NOTE | 2025-04-08 09:12 | W.PM.DSUDISC ---
Date of service: 04/08/25 Discharge Plan Disposition Patient Disposition: Home Discharge Details Attending Provider: Nadia Miguel Primary Care Provider: Antonio Waletr Home Meds and New Rx's Prescriptions: No Action PNV no.986-zatl-[id number] acid 28 mg iron- 800 mcg tablet 1 tab PO DAILY Discharge Instructions Activity:: Nothing in the vagina Diet:: As Tolerated Discharge Orders Discharge Orders: Discharge Order (Routine); Ordered 04/08/25 Ordered By: Nadia Miguel
[2025-04-08 09:30] VITALS: BP 96/59; PULSE 65; RESP 18; TEMP 36.5; O2SAT 100
--- NOTE | 2025-04-08 09:58 | W.ANESPOSTOP ---
Postoperative Evaluation Date, Time and Location Date Performed: 04/08/25 Time Performed: 09:30 Patient Location: Day Surgery Unit Vital Signs Most Recent Imported Vital Signs: Most Recent Vital Signs Temp Pulse Resp BP Pulse Ox 36.5 C 65 18 96/59 L 100 04/08/25 09:30 04/08/25 09:30 04/08/25 09:30 04/08/25 09:30 04/08/25 09:30 Pain Score Most Recent Pain Score: Most Recent Pain Score Pain Level 0 04/08/25 09:30 Assessment Mental Status: Awake (Alert & Oriented to Patient Baseline) Airway and Respiratory Function: Patent airway with normal (patient baseline) respiratory exam Cardiovascular Function: Hemodynamically Stable Hydration Status: Adequately Hydrated Nausea & Vomiting: No Nausea or Vomiting Pain: Pt. Denies Any Pain Peripheral Nerve Block: Patient did not receive a nerve block
== END 2025-04-08 10:00 | disposition home or self-care (01) ==
PROVIDERS: PCP Physician Assistant; Visit Provider Obstetrics & Gynecology
PROC: (CPT 59841; principal; 2025-04-08 08:30)
DX: O03.4 Incomplete spontaneous abortion without complication (principal)
CPT/HCPCS: 59820; 36415; 85027; 86850; 86900; 86901; 88305; J1100; J1885; J2003; J2004; J2250; J2405; J2704

== ENCOUNTER 2025-04-28 09:02 | Outpatient (CLI) | payer BC, SELFPAY ==
[2025-04-28 10:54] LABS: TSH (W/Ref FT4) 1.71 uIU/mL (0.55-4.78)
== END 2025-04-28 09:03 | disposition home or self-care (01) ==
LOC: LBO 09:02
PROVIDERS: PCP Physician Assistant; Visit Provider Obstetrics & Gynecology
DX: N92.0 Excessive and frequent menstruation with regular cycle (principal)
CPT/HCPCS: 36415; 84443